=== PATIENT | female | born 1965 | race Caucasian/White ===

== ENCOUNTER 2016-05-23 00:24 | Emergency (ER) | payer OTHER ==
[~2016-05-23] VITALS: Ht 170.2 cm; Wt 102.0 kg
[~2016-05-23 00:24] MED LIST: IPRA0.02 NEB; LISI10TA3 PO; NOVO7030P2 SQ
[2016-05-23 00:27] VITALS: BP 159/74; PULSE 98; RESP 20; TEMP 98; O2SAT 92
[2016-05-23] MEDS ORDERED: SIMV40TA PO (00:58)
[2016-05-23] MEDS ORDERED: OXYC1TAB36 PO (00:58)
[2016-05-23] MEDS ORDERED: ALPR.5 PO (00:58)
== END 2016-05-23 02:15 | disposition left against medical advice (07) ==
LOC: NEPE 00:24
DX: Z53.21 Procedure and treatment not carried out due to patient leaving prior to being seen by health care provider (principal)
CPT/HCPCS: 99281

== ENCOUNTER 2016-12-09 14:12 | Emergency (ER) | payer OTHER ==
[~2016-12-09] VITALS: Ht 170.2 cm; Wt 68.0 kg
[~2016-12-09 14:12] MED LIST changes: +ALPR.5 PO; +OXYC1TAB36 PO; +SIMV40TA PO
[2016-12-09 14:25] VITALS: BP 139/73; PULSE 99; RESP 16; TEMP 98.2; O2SAT 98
--- NOTE | 2016-12-09 14:51 | PD ---
HPI Chief Complaint: Psychiatric Symptoms Time Seen by Provider: 14:51 Travel History International Travel<30 days: No Contact w/Intl Traveler<30days: No Traveled to known affect area: No History of Present Illness HPI 51-year-old female presents to the emergency Department under ex parte court order by her for psychiatric evaluation. According to her , the patient has a history of bipolar disorder and has been acting manic. The patient denies any history of bipolar disorder. She states she has a history of seizures and is on Depakote and a seizure medication as well as anti-anxiety medication. The patient is wearing a back brace. She is due to degenerative disc disease. She denies any fractures or acute back pain. Patient denies any medical complaints at this time. She is alert and oriented and answers all questions appropriately. Patient states that she has been acting completely normal denies all allegations. Patient has no medical complaints at this time. PFSH Past Medical History Arthritis: Yes Asthma: Yes Blood Disorders: No Anxiety: No Depression: No Heart Rhythm Problems: No Cancer: No Cardiac Catheterization: Yes Cardiomyopathy: Yes Cardiovascular Problems: Yes (MYOCARDIOMYOPATHY) High Cholesterol: Yes Chemotherapy: No Chest Pain: Yes Congestive Heart Failure: No COPD: No Cerebrovascular Accident: No Diabetes: Yes (INSULIN DEPENDENT) Diminished Hearing: No Endocrine: Yes Gastrointestinal Disorders: Yes Glaucoma: No Genitourinary: No Headaches: No Hypertension: No Immune Disorder: No Kidney Stones: Yes Musculoskeletal: Yes Neurologic: Yes Psychiatric: No Reproductive: Yes (OVARIAN CYSTS) Respiratory: Yes (ASTHMA) Immunizations Current: Yes Migraines: No Myocardial Infarction: No Radiation Therapy: No Seizures: Yes (1997) Sleep Apnea: No Thyroid Disease: Yes ?: Not Menopausal: Yes : 4 Para: 0 Miscarriage: 3 : 1 Ovarian Cysts: Yes Past Surgical History Abdominal Surgery: Yes (CHOLECYSTECTOMY) Cardiac Surgery: No Cholecystectomy: Yes Ear Surgery: No Endocrine Surgery: Yes (liver procedure) Eye Surgery: No Genitourinary Surgery: Yes Gynecologic Surgery: Yes (RBL OOPHRECTOMY, HYSTERECTOMY) Hysterectomy: Yes Neurologic Surgery: No Oral Surgery: No Pacemaker: No Thoracic Surgery: No Other Surgery: Yes ( OVARIAN SURGERY) Social History Alcohol Use: No Tobacco Use: Yes Substance Use: No Allergies-Medications (Allergen,Severity, Reaction): Coded Allergies: Clindamycin (Verified Allergy, Severe, 05/23/16) Latex (Verified Allergy, Severe, RASH, 05/23/16) Codeine (Verified Allergy, Intermediate, rash, 05/23/16) Reported Meds & Prescriptions Reported Meds & Active Scripts Active Ipratropium Neb (Ipratropium [place]) 0.5 Mg/2.5 Ml Amp 0.5 Mg NEB Q6HR NEB Reported Xanax (Alprazolam) 0.5 Mg Tab 0.5 Mg PO BID PRN Oxycodone-Acetaminophen 10-325 mg Tab 1 Tab PO Q6H PRN Simvastatin 40 Mg Tab 40 Mg PO HS Lisinopril 10 Mg Tab 10 Mg PO DAILY Novolin 70-30 Inj (Insulin Human Isoph/Insulin Regular) 1,000 Unit/10 Ml Vial 1 Units SQ Review of Systems Except as stated in HPI: all other systems reviewed are Neg Physical Exam Narrative GENERAL: Well-nourished, well-developed female patient, ambulatory. Afebrile. SKIN: Focused skin assessment warm/dry. HEAD: Normocephalic. Atraumatic. EYES: No scleral icterus. No injection or drainage. NECK: Supple, trachea midline. No JVD or lymphadenopathy. CARDIOVASCULAR: Regular rate and rhythm without murmurs, gallops, or rubs. RESPIRATORY: Breath sounds equal bilaterally. No accessory muscle use. Lungs sounds are clear to auscultation GASTROINTESTINAL: Abdomen soft, non-tender, nondistended. MUSCULOSKELETAL: No cyanosis, or edema. BACK: Nontender without obvious deformity. No CVA tenderness. Data Data Last Documented VS Vital Signs Date Time Temp Pulse Resp B/P Pulse Ox O2 Delivery O2 Flow Rate FiO2 12/09/16 14:25 98.2 99 16 139/73 98 Orders Complete Blood Count With Diff (12/09/16 14:38) Psych Screen (12/09/16 14:38) Drug Screen, Random Urine (12/09/16 14:38) Valproic Acid (Depakene) (12/09/16 14:50) Alcohol (Ethanol) (12/09/16 15:10) Comprehensive Metabolic Panel (12/09/16 15:10) Labs Laboratory Tests Test 12/09/16 12/09/16 15:10 15:17 White Blood Count 5.7 TH/MM3 Red Blood Count 4.98 MIL/MM3 Hemoglobin 15.2 GM/DL Hematocrit 45.3 % Mean Corpuscular Volume 91.0 FL Mean Corpuscular Hemoglobin 30.6 PG Mean Corpuscular Hemoglobin 33.6 % Concent Red Cell Distribution Width 14.9 % Platelet Count 215 TH/MM3 Mean Platelet Volume 9.0 FL Neutrophils (%) (Auto) 54.9 % Lymphocytes (%) (Auto) 34.3 % Monocytes (%) (Auto) 8.8 % Eosinophils (%) (Auto) 1.2 % Basophils (%) (Auto) 0.8 % Neutrophils # (Auto) 3.2 TH/MM3 Lymphocytes # (Auto) 2.0 TH/MM3 Monocytes # (Auto) 0.5 TH/MM3 Eosinophils # (Auto) 0.1 TH/MM3 Basophils # (Auto) 0.0 TH/MM3 CBC Comment DIFF FINAL Differential Comment Sodium Level 137 MEQ/L Potassium Level 4.5 MEQ/L Chloride Level 102 MEQ/L Carbon Dioxide Level 18.5 MEQ/L Anion Gap 17 MEQ/L Blood Urea Nitrogen 26 MG/DL Creatinine 1.02 MG/DL Estimat Glomerular Filtration 57 ML/MIN Rate Random Glucose 327 MG/DL Calcium Level 9.4 MG/DL Total Bilirubin 0.5 MG/DL Aspartate Amino Transf 16 U/L (AST/SGOT) Alanine Aminotransferase 22 U/L (ALT/SGPT) Alkaline Phosphatase 93 U/L Total Protein 7.2 GM/DL Albumin 3.3 GM/DL Valproic Acid (Depakene) Level 29 MCG/ML Ethyl Alcohol Level LESS THAN 3 MG/DL Urine Opiates Screen NEG Urine Barbiturates Screen NEG Urine Amphetamines Screen NEG Urine Benzodiazepines Screen NEG Urine Cocaine Screen NEG Urine Cannabinoids Screen NEG MDM Medical Decision Making Medical Screen Exam Complete: Yes Emergency Medical Condition: Yes Medical Record Reviewed: Yes Differential Diagnosis bipolar disorder vs. psychosis vs. electrolyte abnormality Narrative Course 51-year-old female presents to the emergency Department under court order for psychiatric evaluation. Before labs were resulted, the patient eloped from the emergency department. Police were contacted. Diagnosis Primary Impression: At risk for elopement from healthcare setting Additional Impression: Bipolar disorder Qualified Code: F31.12 - Bipolar affective disorder, currently manic, moderate Disposition: 07 AGAINST MEDICAL ADVICE Sue Donald Dec 09, 2016 14:51
[2016-12-09 15:37] LABS: AUTOMATED NEUTROPHIL # 3.2 TH/MM3 (1.8-7.7); BASOPHIL % 0.8 % (0.0-2.0); EOSINOPHIL # 0.1 TH/MM3 (0-0.4); EOSINOPHIL % 1.2 % (0.0-4.0); HEMATOCRIT 45.3 % (35.0-46.0); HEMO FLAGS DIFF FINAL; LYMPH % 34.3 % (9.0-44.0); MEAN CORPUSCULAR HEMOGLOBIN 30.6 PG (27.0-34.0); MEAN CORPUSCULAR HGB CONC 33.6 % (32.0-36.0); MONO % 8.8 % (0.0-8.0); NEUT % 54.9 % (16.0-70.0); PLATELET COUNT 215 TH/MM3 (150-450); RED BLOOD COUNT 4.98 MIL/MM3 (4.00-5.30); RED CELL DISTRIBUTION WIDTH 14.9 % (11.6-17.2); WHITE BLOOD COUNT 5.7 TH/MM3 (4.0-11.0)
[2016-12-09 15:47] LABS: AMPHETAMINE, URINE NEG (NEG); BARBITURATES, URINE NEG (NEG); COCAINE, URINE NEG (NEG)
[2016-12-09 16:47] LABS: ALKALINE PHOSPHATASE 93 U/L (45-117); TOTAL BILIRUBIN ADULT 0.5 MG/DL (0.2-1.0)
[2016-12-09 16:49] LABS: ALT (GPT) 22 U/L (10-53); ANION GAP 17 MEQ/L (5-15); AST (GOT) 16 U/L (15-37); BICARBONATE 18.5 MEQ/L (21.0-32.0); BLOOD UREA NITROGEN 26 MG/DL (7-18); CHLORIDE 102 MEQ/L (98-107); GLOMERULAR FILTRATION RATE 57 ML/MIN (>89); POTASSIUM 4.5 MEQ/L (3.5-5.1); SODIUM (NA) 137 MEQ/L (136-145)
== END 2016-12-09 17:46 | disposition left against medical advice (07) ==
LOC: NEPC 14:12
DX: F31.12 Bipolar disorder, current episode manic without psychotic features, moderate (principal)
CPT/HCPCS: 80053; 80164; 80307; 85025; 99283

== ENCOUNTER 2016-12-09 17:53 | Inpatient (IN) | payer OTHER, MEDICARE ==
[~2016-12-09] VITALS: Ht 170.2 cm; Wt 75.6 kg
[2016-12-09] MEDS ORDERED: SODIUM CHLOR 0.9% 1000 ML INJ 1,000 ML IV ONE ×2 (18:30)
[2016-12-09 18:41] VITALS: BP 132/75; PULSE 76; RESP 20; TEMP 98.1; O2SAT 99
--- NOTE | 2016-12-09 19:12 | PD ---
HPI Chief Complaint: Psychiatric Symptoms Time Seen by Provider: 19:11 Travel History International Travel<30 days: No Contact w/Intl Traveler<30days: No Traveled to known affect area: No History of Present Illness HPI 51-year-old female seen earlier today under court order for psychiatric evaluation. She had eloped from the emergency department. She is now back after police found her and brought her back. Patient was placed under expect a court order by her for psychiatric illness. Patient has history of hyperglycemia, hypertension, DDD, anxiety. Patient has no medical complaints at this time. PFSH Past Medical History Arthritis: Yes Asthma: Yes Blood Disorders: No Anxiety: No Depression: No Heart Rhythm Problems: No Cancer: No Cardiac Catheterization: Yes Cardiomyopathy: Yes Cardiovascular Problems: Yes (MYOCARDIOMYOPATHY) High Cholesterol: Yes Chemotherapy: No Chest Pain: Yes Congestive Heart Failure: No COPD: No Cerebrovascular Accident: No Diabetes: Yes (INSULIN DEPENDENT) Patient Takes Glucophage: No Diminished Hearing: No Endocrine: Yes Gastrointestinal Disorders: Yes Glaucoma: No Genitourinary: No Headaches: No Hypertension: No Immune Disorder: No Implanted Vascular Access Dvce: No Kidney Stones: Yes Musculoskeletal: Yes Neurologic: Yes Psychiatric: No Reproductive: Yes (OVARIAN CYSTS) Respiratory: Yes (ASTHMA) Immunizations Current: Yes Migraines: No Myocardial Infarction: No Radiation Therapy: No Seizures: Yes (1997) Sleep Apnea: No Thyroid Disease: Yes ?: Not Menopausal: Yes : 4 Para: 0 Miscarriage: 3 : 1 Ovarian Cysts: Yes Past Surgical History Abdominal Surgery: Yes (CHOLECYSTECTOMY) Cardiac Surgery: No Cholecystectomy: Yes Ear Surgery: No Endocrine Surgery: Yes (liver procedure) Eye Surgery: No Genitourinary Surgery: Yes Gynecologic Surgery: Yes (RBL OOPHRECTOMY, HYSTERECTOMY) Hysterectomy: Yes Neurologic Surgery: No Oral Surgery: No Pacemaker: No Thoracic Surgery: No Other Surgery: Yes ( OVARIAN SURGERY) Social History Alcohol Use: No Tobacco Use: Yes Substance Use: No Allergies-Medications (Allergen,Severity, Reaction): Coded Allergies: Clindamycin (Verified Allergy, Severe, 05/23/16) Latex (Verified Allergy, Severe, RASH, 05/23/16) Codeine (Verified Allergy, Intermediate, rash, 05/23/16) Reported Meds & Prescriptions Reported Meds & Active Scripts Active Ipratropium Neb (Ipratropium [place]) 0.5 Mg/2.5 Ml Amp 0.5 Mg NEB Q6HR NEB Reported Xanax (Alprazolam) 0.5 Mg Tab 0.5 Mg PO BID PRN Oxycodone-Acetaminophen 10-325 mg Tab 1 Tab PO Q6H PRN Simvastatin 40 Mg Tab 40 Mg PO HS Lisinopril 10 Mg Tab 10 Mg PO DAILY Novolin 70-30 Inj (Insulin Human Isoph/Insulin Regular) 1,000 Unit/10 Ml Vial 1 Units SQ Review of Systems Except as stated in HPI: all other systems reviewed are Neg Physical Exam Narrative GENERAL: Well-nourished, well-developed female patient, afebrile. SKIN: Focused skin assessment warm/dry. HEAD: Normocephalic. Atraumatic. EYES: No scleral icterus. No injection or drainage. NECK: Supple, trachea midline. No JVD or lymphadenopathy. CARDIOVASCULAR: Regular rate and rhythm without murmurs, gallops, or rubs. RESPIRATORY: Breath sounds equal bilaterally. No accessory muscle use. GASTROINTESTINAL: Abdomen soft, non-tender, nondistended. MUSCULOSKELETAL: No cyanosis, or edema. BACK: Nontender without obvious deformity. No CVA tenderness. Data Data Last Documented VS Vital Signs Date Time Temp Pulse Resp B/P Pulse Ox O2 Delivery O2 Flow Rate FiO2 12/09/16 21:33 75 18 115/60 98 Room Air 12/09/16 18:41 98.1 Orders Blood Gas Venous (Vbg) (12/09/16 18:28) Sodium Chlor 0.9% 1000 Ml Inj (Ns 1000 M (12/09/16 18:30) Sodium Chlor 0.9% 1000 Ml Inj (Ns 1000 M (12/09/16 18:30) Basic Metabolic Panel (Bmp) (12/09/16 19:45) Labs Laboratory Tests Test 12/09/16 12/09/16 19:20 21:30 Blood Gas Patient Temperature 98.6 Venous Blood pH 7.33 Venous Blood Partial Pressure 40 mmHg CO2 Venous Blood Partial Pressure 46 mmHg O2 Venous Blood HCO3 21 mmol/L Venous Blood Oxygen Saturation 76 % Venous Blood Oxygen Content 14.0 Vol % Venous Blood Base Excess -4.2 mmol/L Blood Gas Inspired Oxygen 21 % Sodium Level 141 MEQ/L Potassium Level 3.8 MEQ/L Chloride Level 109 MEQ/L Carbon Dioxide Level 21.1 MEQ/L Anion Gap 11 MEQ/L Blood Urea Nitrogen 22 MG/DL Creatinine 0.67 MG/DL Estimat Glomerular Filtration 92 ML/MIN Rate Random Glucose 206 MG/DL Calcium Level 8.3 MG/DL [facility] Medical Decision Making Medical Screen Exam Complete: Yes Emergency Medical Condition: Yes Medical Record Reviewed: Yes Differential Diagnosis Acute psychosis versus bipolar disorder versus electrolyte abnormality Narrative Course 51-year-old female is brought to the emergency Department under court order for psychiatric evaluation. Patient was here and eloped. She is brought back. I reviewed labs from previous visit. CBC shows no acute abnormality. CMP shows carbon dioxide 18.5, anion gap of 17, BUN 26, creatinine 1.02, glucose 327. Urine drug screen is negative. Depakote level is 29. Alcohol level is less than 3. I did a VBG which shows pH is 7.33, CO2 40. Patient is given 2 L IV fluid. She'll be admitted for acute psychosis with delusions, diabetes. [facility] is paged for admission. I talked to Dr. Murdock who recommends recheck of BMP after IVF. This is ordered. Repeat BMP shows no acute abnormality. Patient is medical history for psychiatric screening and disposition. Mental health screening discussed with the patient. Psychiatric screen ordered. Diagnosis Primary Impression: Acute psychosis Additional Impressions: Bipolar disorder Qualified Code: F31.12 - Bipolar affective disorder, currently manic, moderate Diabetes mellitus Qualified Code: E11.8 - Type 2 diabetes mellitus with complication, unspecified choker setter insulin use status Additional Instructions: Patient is medically cleared for psychiatric screening and disposition. Condition: Stable Odilon,Sue KANE Dec 09, 2016 19:11
[2016-12-09 21:33] VITALS: BP 115/60; PULSE 75; RESP 18; O2SAT 98
[2016-12-09 22:33] LABS: BICARBONATE 21.1 MEQ/L (21.0-32.0); POTASSIUM 3.8 MEQ/L (3.5-5.1)
[2016-12-10] MEDS ORDERED: INSULIN HUMAN REGULAR 1,000 UNITS/10 ML VIAL SQ ONE (06:15)
[2016-12-10 06:33] VITALS: BP 141/74; PULSE 77; RESP 18; O2SAT 95
[2016-12-10 10:42] VITALS: BP 135/71; PULSE 82; RESP 18
[2016-12-10] MEDS ORDERED: OLANZapine ODT 10 MG TAB PO ONE (12:45)
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
[2016-12-10] MEDS ORDERED: ALUMINUM/MAGNESIUM/SIMETH 30 ML CUP PO PRN (14:00)
[2016-12-10] MEDS ORDERED: ACETAMINOPHEN 325 MG TAB PO PRN (14:00)
[2016-12-10] MEDS ORDERED: MAGNESIUM HYDROXIDE SUSP 30 ML CUP PO PRN (14:00)
[2016-12-10] MEDS: NICOTINE 21 MG/24 HR PATCH T-DERMAL SCH (15:45)
[2016-12-10] MEDS ORDERED: GLUCAGON 1 MG/ML VIAL OTHER PRN (16:30)
[2016-12-10] MEDS ORDERED: DEXTROSE 50% IN WATER 50 ML VIAL(D50) IV PRN (16:30)
--- NOTE | 2016-12-10 16:33 | PD.CONS ---
[facility] Request[facility] By Psychiatric team Reason for Consult Consignee management of diabetes mellitus Primary Care Physician Tere Pak DO Diagnoses: History of Present Illness Written by Paola Hewitt, acting as scribe for Dr. De Anda on 12/10/16 at 16:24. This a 51-year-old female patient whose past medical history includes chronic back pain degenerative disc disease, hypertension, diabetes mellitus insulin- dependent and schizoaffective disorder with bipolar. Patient appears disheveled in appearance with matted hair and aggressive behavior. Patient unable to stay still during evaluation. Patient currently in inpatient psychiatric center. We have been consulted for assistance with medical management regarding diabetes mellitus. Patient asking for her psychiatric medications to be adjusted. She reports the, "Depakote is not working." Patient reports at home her diabetes is well-controlled and she reports she checks her blood sugar often. Patient also reports she takes blood pressure medication but is unsure the name. Patient focused on getting up brush for her hair and minimally able to focus on evaluation which is limiting available information. Patient appears a poor historian and her current psychiatric state. Patient denies chest pain shortness of breath nausea vomiting diarrhea constipation fevers or chills. Review of Systems ROS Limitations: Psychotic, Poor Historian Except as stated in HPI: all other systems reviewed are Neg Past Family Social History Allergies: Coded Allergies: Clindamycin (Verified Allergy, Severe, 05/23/16) Latex (Verified Allergy, Severe, RASH, 05/23/16) Codeine (Verified Allergy, Intermediate, rash, 05/23/16) Past Medical History chronic back pain degenerative disc disease, hypertension, diabetes mellitus insulin-dependent and schizoaffective disorder with bipolar Past Surgical History Cervical spine surgery with hardware placement Reported Medications Ipratropium Neb (Ipratropium [place]) 0.5 Mg/2.5 Ml Amp 0.5 Mg NEB Q6HR NEB Xanax (Alprazolam) 0.5 Mg Tab 0.5 Mg PO BID PRN Oxycodone-Acetaminophen 10-325 mg Tab 1 Tab PO Q6H PRN Simvastatin 40 Mg Tab 40 Mg PO HS Lisinopril 10 Mg Tab 10 Mg PO DAILY Novolin 70-30 Inj (Insulin Human Isoph/Insulin Regular) 1,000 Unit/10 Ml Vial 1 Units SQ Active Ordered Medications Current Medications Medications (Trade) Dose Ordered Sig/Bill Route Start Time Stop Time Status Last Admin (Tylenol) 650 mg Q4H PRN PO 12/10/16 14:00 (Milk Of Magnesia Liq) 30 ml DAILY PRN PO 12/10/16 14:00 (Mag-Al Plus Susp Liq) 30 ml Q6H PRN PO 12/10/16 14:00 (Habitrol 21 Mg Patch.24 Hr) 1 patch DAILY T-DERMAL 12/10/16 14:00 12/10/16 15:45 Miscellaneous Information 1 DAILY T-DERMAL 12/11/16 09:00 (Prinivil) 10 mg DAILY PO 12/11/16 09:00 (Pravachol) 80 mg HS PO 12/10/16 21:00 Family History Patient reports she is adopted and does not know family medical history Social History Denies EtOH use or illicit drug use Reports smokes 1.5 packs per day Physical Exam Vital Signs Vital Signs Date Time Temp Pulse Resp B/P Pulse Ox O2 Delivery O2 Flow Rate FiO2 12/10/16 10:59 77 18 12/10/16 10:42 82 18 135/71 Room Air 12/10/16 06:33 77 18 141/74 95 12/09/16 21:33 75 18 115/60 98 Room Air 12/09/16 18:41 98.1 76 20 132/75 99 Physical Exam GENERAL: This is a 51-year-old female patient who appears older than stated age. Disheveled with matted hair and aggressive behavior unable to stay still throughout evaluation SKIN: Torn earlobe left ear, small healing hematoma left lower lid HEAD:Normocephalic. No temporal or scalp tenderness. EYES: Extraocular motions intact. No scleral icterus. No injection or drainage. CARDIOVASCULAR: Regular rate and rhythm RESPIRATORY: Clear to auscultation. Breath sounds equal bilaterally. No wheezes , rales, or rhonchi. GASTROINTESTINAL: Abdomen soft, non-tender, nondistended. No guarding. MUSCULOSKELETAL: Extremities without clubbing, cyanosis, or edema. No joint tenderness, effusion, or edema noted. No calf tenderness. Negative Homans sign bilaterally. NEUROLOGICAL: Awake and alert. No focal deficits appreciated. Motor and sensory grossly within normal limits. Five out of 5 muscle strength in all muscle groups. Normal speech. Laboratory Laboratory Tests Test 12/09/16 12/09/16 19:20 21:30 Blood Gas Patient Temperature 98.6 Venous Blood pH 7.33 Venous Blood Partial Pressure 40 CO2 Venous Blood Partial Pressure 46 O2 Venous Blood HCO3 21 Venous Blood Oxygen Saturation 76 Venous Blood Oxygen Content 14.0 Venous Blood Base Excess -4.2 Blood Gas Inspired Oxygen 21 Sodium Level 141 Potassium Level 3.8 Chloride Level 109 Carbon Dioxide Level 21.1 Anion Gap 11 Blood Urea Nitrogen 22 Creatinine 0.67 Estimat Glomerular Filtration 92 Rate Random Glucose 206 Calcium Level 8.3 Result Diagram: 12/09/162129 Assessment and Plan Problem List: (1) Diabetes mellitus ICD Code: E11.9 Status: Chronic (2) HTN (hypertension) ICD Code: I10 Status: Chronic (3) Acute psychosis ICD Code: F23 Status: Acute Assessment and Plan This a 51-year-old female patient whose past medical history includes chronic back pain degenerative disc disease, hypertension, diabetes mellitus insulin- dependent and schizoaffective disorder with bipolar. Patient appears disheveled in appearance with matted hair and aggressive behavior. Patient unable to stay still during evaluation. Patient currently in inpatient psychiatric center. We have been consulted for assistance with medical management regarding diabetes mellitus. Psychiatric disorder management per psychiatry team Diabetes mellitus, Insulin-dependent- uncontrolled Unclear patient's home insulin dose or type Accu-Cheks before meals at bedtime with medium dose on a scale insulin coverage Diabetic diet Check HA1C in AM Degenerative disc disease with chronic back pain Fentanyl patch 50 mcg every 3 days Hyperlipidemia continue simvastatin Tobacco abuse patient counseled encouraged to abstain Nicotine patch ordered DVT prophylaxis patient is able to tolerate low risk Discussed with patient and nursing This note was transcribed by anisha Hewitt. I, Dr. Daksha De Anda personally performed the history, physical exam, and medical decision making; and confirmed the accuracy of the information in the transcribed note. Authenticated by Dr. Daksha De Anda on 12/10/16 at 16:29. Problem Qualifiers (1) Diabetes mellitus: Qualified Code: E11.8 - Type 2 diabetes mellitus with complication, unspecified usp insulin use status Paola Hewitt Dec 10, 2016 16:33 Daksha De Anda MD Dec 10, 2016 21:14
[2016-12-10 16:59] VITALS: BP 156/77; PULSE 89; RESP 18; TEMP 97.8; O2SAT 95
[2016-12-10] MEDS: INSULIN ASPART SUPPLEMENTAL SCALE SQ SCH ×2 (17:23→20:36)
[2016-12-10] MEDS: fentaNYL 50 MCG/HR PATCH T-DERMAL SCH (17:25)
[2016-12-10] MEDS: PRAVASTATIN SOD 80 MG TAB PO SCH (20:36)
[2016-12-10] MEDS ORDERED: INSULIN ASPART SUPPLEMENTAL SCALE SQ SCH (21:00)
[2016-12-11 06:00] VITALS: BP 141/75; PULSE 73; RESP 18; TEMP 97.3; O2SAT 97
[2016-12-11] MEDS: INSULIN ASPART SUPPLEMENTAL SCALE SQ SCH ×4 (06:21→20:47)
[2016-12-11] MEDS: NICOTINE 21 MG/24 HR PATCH T-DERMAL SCH (09:00)
[2016-12-11] MEDS: LISINOPRIL 10 MG TAB PO SCH ×2 (09:00→09:58)
[2016-12-11] MEDS: REMOVE OLD PATCH T-DERMAL SCH (09:00)
[2016-12-11] MEDS ORDERED: PNEUMOCOCCAL POLYVALENT INJ 25 MCG/0.5 ML SYR IM ONE (10:00)
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
[2016-12-11] MEDS: OLANZapine 2.5 MG TAB PO SCH (20:37)
[2016-12-11] MEDS: PRAVASTATIN SOD 80 MG TAB PO SCH (20:37)
[2016-12-11] MEDS ORDERED: INSULIN DETEMIR 100 UNITS/ML VIAL SQ SCH (21:00)
[2016-12-11 22:31] VITALS: BP 109/59; PULSE 77; RESP 18; TEMP 97.9; O2SAT 96
[2016-12-12] MEDS: INSULIN ASPART SUPPLEMENTAL SCALE SQ SCH ×4 (05:34→21:44)
[2016-12-12 05:59] VITALS: BP 132/73; PULSE 88; RESP 18; TEMP 97.9; O2SAT 98
[2016-12-12] MEDS: REMOVE OLD PATCH T-DERMAL SCH (09:00)
[2016-12-12] MEDS: LISINOPRIL 10 MG TAB PO SCH (09:00)
[2016-12-12] MEDS: OLANZapine 2.5 MG TAB PO SCH (09:00)
[2016-12-12] MEDS: NICOTINE 21 MG/24 HR PATCH T-DERMAL SCH (09:00)
[2016-12-12 11:47] LABS: ANION GAP 8 MEQ/L (5-15); BICARBONATE 26.4 MEQ/L (21.0-32.0); CHLORIDE 107 MEQ/L (98-107); GLOMERULAR FILTRATION RATE 89 ML/MIN (>89); POTASSIUM 4.2 MEQ/L (3.5-5.1); SODIUM (NA) 141 MEQ/L (136-145)
[2016-12-12 11:49] LABS: BLOOD UREA NITROGEN 20 MG/DL (7-18); HDL CHOLESTEROL 59.3 MG/DL (40.0-60.0); LDL CHOLESTEROL 68 MG/DL (0-99)
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
--- NOTE | 2016-12-12 12:40 | HHI.PR ---
Subjective Remarks Follow up: IDDM, DDD, hyperlipidemia. Patient evaluated outside in exercise area. Patient offers no specific medical complaints at this time. Patient reports she is being discharged today and repeatedly asking for prescription for anti-anxiety medication. Patient denies shortness of breath chest pain nausea vomiting diarrhea constipation fevers or chills Objective Vitals Vital Signs Date Time Temp Pulse Resp B/P Pulse Ox O2 Delivery O2 Flow Rate FiO2 12/12/16 05:59 97.9 88 18 132/73 98 12/11/16 22:31 97.9 77 18 109/59 96 Result Diagram: 12/12/16 0910 Objective Remarks GENERAL: This is a 51-year-old female patient who appears older than stated age. Preoccupied/fixed on discharge and prescription for anti-anxiety medications SKIN: Torn earlobe left ear, small healing scrap/hematoma left lower lid HEAD:Normocephalic. No temporal or scalp tenderness. EYES: Extraocular motions intact. No scleral icterus. No injection or drainage. CARDIOVASCULAR: Regular rate and rhythm RESPIRATORY: Clear to auscultation. Breath sounds equal bilaterally. No wheezes , rales, or rhonchi. GASTROINTESTINAL: Abdomen soft, non-tender, nondistended. No guarding. MUSCULOSKELETAL: Extremities without clubbing, cyanosis, or edema. No joint tenderness, effusion, or edema noted. No calf tenderness. Negative Homans sign bilaterally. NEUROLOGICAL: Awake and alert. No focal deficits appreciated. Motor and sensory grossly within normal limits. Five out of 5 muscle strength in all muscle groups. Normal speech. A/P Problem List: (1) Diabetes mellitus ICD Code: E11.9 Status: Chronic (2) HTN (hypertension) ICD Code: I10 Status: Chronic (3) Acute psychosis ICD Code: F23 Status: Acute Assessment and Plan This a 51-year-old female patient whose past medical history includes chronic back pain degenerative disc disease, hypertension, diabetes mellitus insulin- dependent and schizoaffective disorder with bipolar. Patient appears disheveled in appearance with matted hair and aggressive behavior. Patient unable to stay still during evaluation. Patient currently in inpatient psychiatric center. We have been consulted for assistance with medical management regarding diabetes mellitus. Psychiatric disorder management per psychiatry team Diabetes mellitus, Insulin-dependent- uncontrolled Unclear patient's home insulin dose or type Accu-Cheks before meals at bedtime with medium dose on a scale insulin coverage increase Levemir to 15 Units QHS Diabetic diet Check HA1C pending Degenerative disc disease with chronic back pain Fentanyl patch 50 mcg every 3 days Hyperlipidemia continue simvastatin Tobacco abuse patient counseled encouraged to abstain Nicotine patch ordered DVT prophylaxis patient is able to tolerate low risk Discussed with patient, nursing Dr. Ambriz Problem Qualifiers (1) Diabetes mellitus: Qualified Code: E11.8 - Type 2 diabetes mellitus with complication, unspecified watermaster insulin use status Paola Hewitt Dec 12, 2016 12:40
[2016-12-12] MEDS ORDERED: OLANZapine IM 10 MG VIAL IM PRN (13:30)
[2016-12-12] MEDS ORDERED: HALOPERIDOL LACTATE 5 MG/ML AMP IM PRN (14:00)
[2016-12-12] MEDS ORDERED: BENZTROPINE MESYLATE 1 MG TAB PO PRN (14:00)
[2016-12-12] MEDS ORDERED: LORazepam 2 MG/ML VIAL IM PRN (14:00)
[2016-12-12] MEDS ORDERED: HALOPERIDOL 5 MG TAB PO PRN (14:00)
[2016-12-12] MEDS ORDERED: BENZTROPINE MESYLATE 2 MG/2 ML VIAL IM PRN (14:00)
[2016-12-12] MEDS ORDERED: OLANZapine IM 10 MG VIAL IM STA (15:06)
[2016-12-12 18:16] VITALS: BP 139/80; PULSE 69; RESP 18; TEMP 97.9; O2SAT 99
[2016-12-12 18:22] LABS: HEMOGLOBIN A1a 1.3 %; HEMOGLOBIN A1b 0.8 %; HEMOGLOBIN Ao 77.8 %; HEMOGLOBIN F 1.8 %; HEMOGLOBIN LA1C 2.4 %; HEMOGLOBIN P3 4.9 %
[2016-12-12] MEDS ORDERED: OLANZapine 5 MG TAB PO SCH (21:00)
[2016-12-12] MEDS: INSULIN DETEMIR 100 UNITS/ML VIAL SQ SCH (21:00)
[2016-12-12] MEDS: PRAVASTATIN SOD 80 MG TAB PO SCH (21:43)
[2016-12-12] MEDS: DIVALPROEX DR 500 MG TABEC PO SCH (21:43)
[2016-12-13 06:03] VITALS: BP 137/72; PULSE 85; RESP 17; TEMP 97.7; O2SAT 96
[2016-12-13] MEDS: INSULIN ASPART SUPPLEMENTAL SCALE SQ SCH ×4 (07:00→20:47)
[2016-12-13] MEDS: REMOVE OLD PATCH T-DERMAL SCH (09:00)
[2016-12-13] MEDS: DIVALPROEX DR 500 MG TABEC PO SCH ×2 (09:24→21:32)
[2016-12-13] MEDS: LISINOPRIL 10 MG TAB PO SCH (09:24)
[2016-12-13] MEDS: NICOTINE 21 MG/24 HR PATCH T-DERMAL SCH (09:25)
[2016-12-13] MEDS: LORazepam 1 MG TAB PO PRN ×2 (09:25→18:50)
--- NOTE | 2016-12-13 11:55 | HHI.PYPN ---
Subjective Remarks Patient seen and examined with counselor and nurse. Chart reviewed. Case discussed in treatment team. Per nursing staff, patient remains labile, unpredictable and delusional. On my examination today, the patient is quite perseverative with respect to her thought process. Her insight into her mental illness is poor. She continues to minimize the circumstances of her presentation here. She does seem a little bit calmer today with adjustment in psychotropics. No evident side effects from medications. No physical complaints. Review of Systems ROS Limitations: Psychotic, Poor Historian Except as stated in HPI: all other systems reviewed are Neg Objective Alert: Yes [place]: Person Mood: Other (Calmer) Affect: Other (Irritable edge) Memory Intact: Comment (Not formally assessed) Hallucinations: Auditory (Still a little int stim) Delusions: Yes Delusion Type: Paranoid Suicidal: Ideation (No SI) Homicidal: Ideation (No HI) Insight/Judgment Poor Remarks No motor abnormalities noted. Grooming and hygiene fair. Speech wnl for rate, volume. Labs Labs reviewed. Vitals/IOs Vital Signs Date Time Temp Pulse Resp B/P Pulse Ox O2 Delivery O2 Flow Rate FiO2 12/13/16 06:03 97.7 85 17 137/72 96 12/10/16 10:42 Room Air Assessment & Plan Problem List: (1) Schizoaffective disorder ICD Code: F25.9 Assessment & Plan Titrate Zyprexa to 7.5 mg at bedtime for mood stabilization and for psychosis. Continue Depakote as ordered. Plan to check a Depakote level and ammonia level after the appropriate interval. Appreciate hospitalist input. Continue to monitor on the high acuity unit. Continue other medications and care as ordered. Justification for Cont. Inpt. Medication changes in process. Impairment in reality construction. High risk for decompensation in less restrictive environment. Discharge Planning Pending psychiatric stabilization Request HC Surrog/Guard Advoc?: Yes Problem Qualifiers (1) Schizoaffective disorder: Qualified Code: F25.0 - Schizoaffective disorder, bipolar type Jamil Mcintosh MD Dec 13, 2016 11:55
[2016-12-13] MEDS ORDERED: REMOVE OLD DURAGESIC (FENTANYL) PATCH T-DERMAL SCH (17:00)
[2016-12-13 18:10] VITALS: BP 126/77; PULSE 95; RESP 17; TEMP 98.5; O2SAT 98
[2016-12-13] MEDS: fentaNYL 50 MCG/HR PATCH T-DERMAL SCH (18:57)
[2016-12-13] MEDS: INSULIN DETEMIR 100 UNITS/ML VIAL SQ SCH (20:46)
[2016-12-13] MEDS ORDERED: OLANZapine 2.5 MG TAB PO SCH (21:00)
[2016-12-13] MEDS: PRAVASTATIN SOD 80 MG TAB PO SCH (21:32)
[2016-12-14 05:52] VITALS: BP 129/74; PULSE 89; RESP 18; TEMP 97.3; O2SAT 98
[2016-12-14] MEDS: INSULIN ASPART SUPPLEMENTAL SCALE SQ SCH ×4 (06:39→20:13)
[2016-12-14] MEDS: REMOVE OLD PATCH T-DERMAL SCH (09:00)
[2016-12-14] MEDS: DIVALPROEX DR 500 MG TABEC PO SCH ×2 (09:13→20:08)
[2016-12-14] MEDS: LISINOPRIL 10 MG TAB PO SCH (09:13)
[2016-12-14] MEDS: NICOTINE 21 MG/24 HR PATCH T-DERMAL SCH (09:15)
[2016-12-14] MEDS: LORazepam 1 MG TAB PO PRN ×2 (09:15→20:08)
--- NOTE | 2016-12-14 09:44 | HHI.PYPN ---
Subjective Remarks Patient seen and examined with counselor and nurse. Chart reviewed. Case discussed with nursing staff. Patient remains internally stimulated per nursing staff. On my examination today, patient denies AVH but remains somewhat internally preoccupied. Her thought process is tangential at times. She is resistant to accepting medications other than Depakote but does agree to accept the Zyprexa on an ongoing basis after further psychoeducation regarding its role in her regimen. She is calmer with medications, although I do see it documented in nursing notes that she was angry yesterday afternoon. Denies side effects from medications. No physical complaints. Review of Systems ROS Limitations: Psychotic, Poor Historian Except as stated in HPI: all other systems reviewed are Neg Objective Alert: Yes [place]: Person, Place (at least) Mood: Other (again somewhat calmer) Affect: Other (remains a little bit irritable, but this too is lessening) Memory Intact: Comment (Not formally assessed) Hallucinations: Auditory (denies AVH but appears somewhat internally preoccupied) Delusions: Yes Delusion Type: Paranoid (perhaps lessening) Suicidal: Ideation (No SI) Homicidal: Ideation (No HI) Insight/Judgment Poor Remarks No abnormal motor movements noted. Thought process at times tangential. Speech within normal limits for rate, tone and volume. Grooming and hygiene fair. Labs Labs reviewed. Vitals/IOs Vital Signs Date Time Temp Pulse Resp B/P Pulse Ox O2 Delivery O2 Flow Rate FiO2 12/14/16 05:52 97.3 89 18 129/74 98 12/10/16 10:42 Room Air Assessment & Plan Problem List: (1) Schizoaffective disorder ICD Code: F25.9 Assessment & Plan Titrate Zyprexa to 10 mg at bedtime for mood stabilization and psychosis. Continue Depakote as ordered with plans to draw a Depakote and ammonia level in the morning. Continue to monitor on the inpatient unit. Patient is presently willing to remain in the hospital voluntarily for further treatment; patient may sign voluntary at this time. Justification for Cont. Inpt. Medication changes in process. Need to follow-up Depakote level and possibly adjust the dose. Impairment in reality construction, perhaps improving. Remains at high risk for decompensation in a less restrictive environment. Discharge Planning I anticipate that the patient may be adequately stabilized for safety discharge by Monday of this week. Request HC Surrog/Guard Advoc?: Yes Problem Qualifiers (1) Schizoaffective disorder: Qualified Code: F25.0 - Schizoaffective disorder, bipolar type Jamil Mcintosh MD Dec 14, 2016 09:44
--- NOTE | 2016-12-14 10:36 | HHI.PR ---
Subjective Remarks Follow-up visit type 1 diabetes, noncompliant. Patient seen and examined today. Reports she is doing well. Discuss with patient results of hemoglobin A1c. Discuss compliance. Patient states that she uses Lantus 15 units outside and her last hemoglobin A1c that was done by her PCP was 7.9. Spoke with patient that she needs to comply with the medication especially she reports that she has type 1 diabetes which was diagnosed and she was 8 years old. Denies pain and discomfort. Denies SOB/ dyspnea. Denies chest pain, palpitations, headaches, dizziness. Denies fevers, chills, n/v/d. Denies dysuria. Objective Vitals Vital Signs Date Time Temp Pulse Resp B/P Pulse Ox O2 Delivery O2 Flow Rate FiO2 12/14/16 05:52 97.3 89 18 129/74 98 12/13/16 18:10 98.5 95 17 126/77 98 Result Diagram: 12/12/16 0910 Objective Remarks GENERAL: This is a well-nourished, well-developed patient, in no apparent distress. SKIN: Warm and dry. HEENT: Normocephalic. Pupils equal round and reactive. Nose without bleeding. Airway patent. NECK: Trachea midline. CARDIOVASCULAR: Regular rate and rhythm without murmurs, gallops, or rubs. RESPIRATORY: Clear to auscultation. Breath sounds equal bilaterally. No wheezes , rales, or rhonchi. GASTROINTESTINAL: Abdomen soft, non-tender, nondistended. Bowel Sounds normoactive x4. MUSCULOSKELETAL: Extremities without clubbing, cyanosis, or edema. NEUROLOGICAL: Awake and alert. Oriented to place, person. No focal neuro deficit. Moves all extremities. Normal speech. A/P Problem List: (1) Diabetes mellitus ICD Code: E11.9 Status: Chronic (2) HTN (hypertension) ICD Code: I10 Status: Chronic (3) Acute psychosis ICD Code: F23 Status: Acute Assessment and Plan This a 51-year-old female patient whose past medical history includes chronic back pain degenerative disc disease, hypertension, diabetes mellitus insulin- dependent and schizoaffective disorder with bipolar. Patient appears disheveled in appearance with matted hair and aggressive behavior. Patient unable to stay still during evaluation. Patient currently in inpatient psychiatric center. We have been consulted for assistance with medical management regarding diabetes mellitus. Psychiatric disorder management per psychiatry team Type 1 Diabetes mellitus, Insulin-dependent- uncontrolled Verified dose of Insulin from [facility] - patient is taking Lantus 30 units subcutaneous once a day. As per patient, she is taking at 15 units twice a day. Last refill of medication was September 2016. Accu-Cheks before meals at bedtime with medium dose on a scale insulin coverage Change Levemir to 15 Units BID Diabetic diet Check HA1C 10.9 - Discuss with patient compliance of medication. Discuss similarity of Levemir and Lantus. Patient states that she was on insulin sliding scale before but now has been off of it and just being on Lantus. She is being followed by her primary care doctor with insulin adjustments. Degenerative disc disease with chronic back pain Fentanyl patch 50 mcg every 3 days Hyperlipidemia continue simvastatin Tobacco abuse patient counseled encouraged to abstain Nicotine patch ordered DVT prophylaxis patient is able to tolerate low risk Discussed with patient, nursing Dr. Canas Problem Qualifiers (1) Diabetes mellitus: Qualified Code: E11.8 - Type 2 diabetes mellitus with complication, unspecified residential insulin use status Hiro Ernst Dec 14, 2016 10:36
[2016-12-14 18:20] VITALS: BP 115/68; PULSE 84; RESP 18; TEMP 97.4; O2SAT 99
[2016-12-14] MEDS: OLANZapine 10 MG TAB PO SCH (20:08)
[2016-12-14] MEDS: PRAVASTATIN SOD 80 MG TAB PO SCH (20:08)
[2016-12-14] MEDS: INSULIN DETEMIR 100 UNITS/ML VIAL SQ SCH (20:15)
[2016-12-15 06:03] VITALS: BP 103/73; PULSE 94; RESP 17; TEMP 97.7; O2SAT 99
[2016-12-15] MEDS: INSULIN ASPART SUPPLEMENTAL SCALE SQ SCH ×4 (06:09→21:00)
[2016-12-15] MEDS: REMOVE OLD PATCH T-DERMAL SCH (08:55)
[2016-12-15] MEDS: DIVALPROEX DR 500 MG TABEC PO SCH ×2 (08:55→20:03)
[2016-12-15] MEDS: LISINOPRIL 10 MG TAB PO SCH (08:55)
[2016-12-15] MEDS: NICOTINE 21 MG/24 HR PATCH T-DERMAL SCH (08:55)
[2016-12-15] MEDS: INSULIN DETEMIR 100 UNITS/ML VIAL SQ SCH ×2 (09:00→21:00)
--- NOTE | 2016-12-15 11:00 | HHI.PYPN ---
Subjective Remarks Patient seen and examined with counselor and nurse. Chart reviewed. Case d/w RN. On my exam, patient seems improved. Mood reportedly more stable. Affect appropriate and not expansive or labile. No evidence of int stim. Denies SI or HI. TP becoming more linear. She has signed voluntary. She is pleased with current med regimen. Denies side effects from meds. No physical complaints besides chronic back pain. Review of Systems Except as stated in HPI: all other systems reviewed are Neg Objective Alert: Yes [place]: Person, Place Mood: Calm Affect: Appropriate Memory Intact: Comment (Not formally assessed) Hallucinations: Other (No hallucinations) Delusions: No Delusion Type: Other (No delusions) Suicidal: Ideation (Denies SI) Homicidal: Ideation (Denies HI) Insight/Judgment Poor Remarks No motor abnormalities noted. TP fairly linear. Grooming and hygiene good. Labs Labs reviewed. VPA level slightly low at 49, but this may slightly under- represent actual level given that she has only been on VPA 3 days. Ammonia level slightly elevated without evidence of encephalopathy. Vitals/IOs Vital Signs Date Time Temp Pulse Resp B/P Pulse Ox O2 Delivery O2 Flow Rate FiO2 12/15/16 06:03 97.7 94 17 103/73 99 Assessment & Plan Problem List: (1) Schizoaffective disorder ICD Code: F25.9 Assessment & Plan Continue Depakote and Zyprexa as ordered. Recheck VPA and ammonia level in the morning. If VPA level still subtherapeutic, may offer to titrate VPA, although patient does seem to be improving on current dose and so I do not think this is absolutely necessary, especially since she also has Zyprexa on board. If ammonia level is still elevated, may consider prophylactic use of Carnitor/ lactulose. Continue to monitor on inpatient unit. Continue other medications and care as ordered. Justification for Cont. Inpt. Recheck lab values. Discharge Planning Possible d/c tomorrow. Request HC Surrog/Guard Advoc?: Yes Problem Qualifiers (1) Schizoaffective disorder: Qualified Code: F25.0 - Schizoaffective disorder, bipolar type Jamil Mcintosh MD Dec 15, 2016 10:59
[2016-12-15] MEDS: LORazepam 1 MG TAB PO PRN ×2 (11:47→20:03)
[2016-12-15 16:03] VITALS: BP 87/52; PULSE 81; RESP 17; TEMP 98; O2SAT 98
[2016-12-15] MEDS: PRAVASTATIN SOD 80 MG TAB PO SCH (20:03)
[2016-12-15] MEDS: OLANZapine 10 MG TAB PO SCH (20:04)
[2016-12-16] MEDS: INSULIN ASPART SUPPLEMENTAL SCALE SQ SCH ×2 (06:03→11:25)
[2016-12-16] MEDS: REMOVE OLD PATCH T-DERMAL SCH (06:07)
[2016-12-16 06:13] VITALS: BP 139/76; PULSE 90; RESP 16; TEMP 97.2; O2SAT 99
[2016-12-16] MEDS: NICOTINE 21 MG/24 HR PATCH T-DERMAL SCH (08:52)
[2016-12-16] MEDS: DIVALPROEX DR 500 MG TABEC PO SCH (08:53)
[2016-12-16] MEDS: LISINOPRIL 10 MG TAB PO SCH (08:53)
[2016-12-16] MEDS ORDERED: INSULIN DETEMIR 100 UNITS/ML VIAL SQ SCH (09:00)
[2016-12-16] MEDS ORDERED: OLAN10TA PO (12:01)
[2016-12-16] MEDS ORDERED: LEVEMIR SQ (12:01)
[2016-12-16] MEDS ORDERED: DIVA500T PO (12:01)
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
[2016-12-16] MEDS: LORazepam 1 MG TAB PO PRN (13:49)
== END 2016-12-16 15:35 | disposition home or self-care (01) | DRG 885 ==
LOC: NEPC 17:53 → NEDA 12-10 13:50 → H270 12-10 15:26
PROVIDERS: ADMIT Psychiatry & Neurology Psychiatry; ATTEND Psychiatry & Neurology Psychiatry
DX: F25.0 Schizoaffective disorder, bipolar type (principal); I42.9 Cardiomyopathy, unspecified; F23 Brief psychotic disorder; E10.65 Type 1 diabetes mellitus with hyperglycemia; E78.5 Hyperlipidemia, unspecified; F22 Delusional disorders; G89.29 Other chronic pain; M54.9 Dorsalgia, unspecified; I10 Essential (primary) hypertension; J45.909 Unspecified asthma, uncomplicated; Z79.4 Long term (current) use of insulin; F17.210 Nicotine dependence, cigarettes, uncomplicated; Z87.442 Personal history of urinary calculi; Z91.14 Patient's other noncompliance with medication regimen; Z91.19 Patient's noncompliance with other medical treatment and regimen
CPT/HCPCS: 80048; 80053; 80061; 80164; 80307; 82140; 82948; 83036; 85025; 96372; 99283; J1815; J7030

== ENCOUNTER 2017-01-07 18:11 | Emergency (ER) | payer OTHER ==
[~2017-01-07] VITALS: Ht 172.7 cm; Wt 75.6 kg
[~2017-01-07 18:11] MED LIST changes: -ALPR.5 PO; +DIVA500T PO; -IPRA0.02 NEB; +LEVEMIR SQ; -NOVO7030P2 SQ; +OLAN10TA PO
[2017-01-07 18:23] VITALS: BP 140/75; PULSE 97; RESP 16; TEMP 98; O2SAT 96
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
[2017-01-07 19:28] LABS: AUTOMATED NEUTROPHIL # 4.7 TH/MM3 (1.8-7.7); BASOPHIL # 0.1 TH/MM3 (0-0.2); BASOPHIL % 0.9 % (0.0-2.0); EOSINOPHIL % 0.5 % (0.0-4.0); HEMATOCRIT 46.4 % (35.0-46.0); HEMO FLAGS DIFF FINAL; LYMPH % 23.3 % (9.0-44.0); LYMPHOCYTE # 1.6 TH/MM3 (1.0-4.8); MEAN CELL VOLUME 92.3 FL (80.0-100.0); MEAN CORPUSCULAR HEMOGLOBIN 30.5 PG (27.0-34.0); MONO % 7.1 % (0.0-8.0); NEUT % 68.2 % (16.0-70.0); PLATELET COUNT 227 TH/MM3 (150-450); RED BLOOD COUNT 5.02 MIL/MM3 (4.00-5.30); RED CELL DISTRIBUTION WIDTH 15.3 % (11.6-17.2); WHITE BLOOD COUNT 6.9 TH/MM3 (4.0-11.0)
[2017-01-07 19:38] LABS: ANION GAP 10 MEQ/L (5-15); BICARBONATE 22.3 MEQ/L (21.0-32.0); BLOOD UREA NITROGEN 19 MG/DL (7-18); CHLORIDE 103 MEQ/L (98-107); GLOMERULAR FILTRATION RATE 59 ML/MIN (>89); SODIUM (NA) 135 MEQ/L (136-145)
[2017-01-07 19:54] LABS: ALCOHOL LESS THAN 3 MG/DL (0-5); POTASSIUM 4.8 MEQ/L (3.5-5.1)
[2017-01-07] MEDS ORDERED: SODIUM CHLOR 0.9% 1000 ML INJ 1,000 ML IV ONE (20:00)
[2017-01-07] MEDS ORDERED: KETOROLAC TROMETHAMINE 30 MG/ML (IVP) VIAL IV PUSH ONE (20:00)
[2017-01-07] MEDS ORDERED: INSULIN HUMAN REGULAR 1,000 UNITS/10 ML VIAL IV PUSH ONE (20:00)
[2017-01-07 22:32] VITALS: BP 179/77; PULSE 99; RESP 18; TEMP 97.5; O2SAT 96
[2017-01-08 03:01] VITALS: BP 132/72; PULSE 80; RESP 18; O2SAT 96
[2017-01-08 06:45] VITALS: BP 157/73; PULSE 86; RESP 18; O2SAT 96
[2017-01-08] MEDS ORDERED: INSULIN ASPART 1,000 UNITS/10 ML VIAL SQ ONE ×2 (12:26→14:15)
[2017-01-08] MEDS ORDERED: DIVALPROEX DR 500 MG TABEC PO ONE (14:15)
[2017-01-08] MEDS ORDERED: INSULIN HUMAN REGULAR 1,000 UNITS/10 ML VIAL SQ ONE (17:30)
[2017-01-08] MEDS ORDERED: NICOTINE 21 MG/24 HR PATCH T-DERMAL ONE (17:30)
[2017-01-08 17:53] VITALS: BP 94/55; PULSE 85; RESP 18; O2SAT 98
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
[2017-01-08 20:46] VITALS: BP 123/57; PULSE 71; RESP 18
[2017-01-09] MEDS ORDERED: DEXTROSE 50% IN WATER 50 ML VIAL(D50) IV PRN (03:45)
[2017-01-09] MEDS ORDERED: GLUCAGON 1 MG/ML VIAL OTHER PRN (03:45)
[2017-01-09 06:46] VITALS: RESP 17
[2017-01-09] MEDS ORDERED: INSULIN NovoLIN REGULAR SUPPLEMENTAL SCALE SQ SCH (07:00)
== END 2017-01-09 10:31 | disposition short-term general hospital (02) ==
LOC: NEPD 18:11 → NEPJ 01-09 10:31
DX: F25.0 Schizoaffective disorder, bipolar type (principal); E10.65 Type 1 diabetes mellitus with hyperglycemia; Z72.0 Tobacco use; Z79.4 Long term (current) use of insulin
CPT/HCPCS: 80048; 80164; 80307; 85025; 96361; 96372; 96374; 96375; 99285; J1815; J1885; J7030

== ENCOUNTER 2017-05-11 20:17 | Inpatient (IN) | payer OTHER, MEDICARE ==
[2017-05-11 20:39] VITALS: BP 151/70; PULSE 93; RESP 16; TEMP 98.6; O2SAT 95
[2017-05-11] MEDS ORDERED: DIVA250T PO (21:02)
[2017-05-11 21:06] LABS: AUTOMATED NEUTROPHIL # 4.8 TH/MM3 (1.8-7.7); BASOPHIL # 0.1 TH/MM3 (0-0.2); BASOPHIL % 1.2 % (0.0-2.0); EOSINOPHIL % 0.4 % (0.0-4.0); HEMATOCRIT 44.7 % (35.0-46.0); HEMOGLOBIN 15.5 GM/DL (11.6-15.3); LYMPH % 21.6 % (9.0-44.0); LYMPHOCYTE # 1.5 TH/MM3 (1.0-4.8); MEAN CELL VOLUME 92.9 FL (80.0-100.0); MEAN CORPUSCULAR HEMOGLOBIN 32.1 PG (27.0-34.0); MEAN CORPUSCULAR HGB CONC 34.6 % (32.0-36.0); MEAN PLATELET VOLUME 8.6 FL (7.0-11.0); MONO % 5.1 % (0.0-8.0); MONOCYTE # 0.3 TH/MM3 (0-0.9); NEUT % 71.7 % (16.0-70.0); PLATELET COUNT 243 TH/MM3 (150-450); RED BLOOD COUNT 4.81 MIL/MM3 (4.00-5.30); RED CELL DISTRIBUTION WIDTH 13.7 % (11.6-17.2); WHITE BLOOD COUNT 6.7 TH/MM3 (4.0-11.0)
[2017-05-11] MEDS ORDERED: INSULIN HUMAN REGULAR 1,000 UNITS/10 ML VIAL SQ ONE (21:15)
[2017-05-11 21:31] LABS: ALBUMIN 3.3 GM/DL (3.4-5.0); ALKALINE PHOSPHATASE 95 U/L (45-117); ALT (GPT) 23 U/L (10-53); AST (GOT) 17 U/L (15-37); BICARBONATE 24.9 MEQ/L (21.0-32.0); BLOOD UREA NITROGEN 20 MG/DL (7-18); CALCIUM 8.7 MG/DL (8.5-10.1); CHLORIDE 98 MEQ/L (98-107); CREATININE 1.01 MG/DL (0.50-1.00); GLOMERULAR FILTRATION RATE 57 ML/MIN (>89); SODIUM (NA) 133 MEQ/L (136-145); TOTAL BILIRUBIN ADULT 0.4 MG/DL (0.2-1.0); TOTAL PROTEIN 7.1 GM/DL (6.4-8.2)
[2017-05-11 21:39] LABS: ACETAMINOPHEN LESS THAN 2.0 MCG/ML (10.0-30.0)
[2017-05-11 21:40] LABS: GLUCOSE,RANDOM 418 MG/DL (74-106)
[2017-05-11 22:35] VITALS: BP 138/63; PULSE 83; RESP 18; TEMP 98.7; O2SAT 95
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
[2017-05-11] MEDS ORDERED: GLUCAGON 1 MG/ML VIAL OTHER PRN (23:30)
[2017-05-11] MEDS ORDERED: DEXTROSE 50% IN WATER 50 ML VIAL(D50) IV PUSH PRN (23:30)
[2017-05-12 00:57] VITALS: BP 115/58; PULSE 94; RESP 18; TEMP 97.2; O2SAT 98
[2017-05-12 06:14] VITALS: BP 107/55; PULSE 82; RESP 17; TEMP 98.6; O2SAT 98
[2017-05-12] MEDS: MEDIUM DOSE INSULIN NOVOLIN REGULAR SUPPLEMENTAL SCALE SQ SCH ×4 (07:55→21:22)
[2017-05-12] MEDS: NICOTINE 21 MG/24 HR PATCH T-DERMAL SCH (08:02)
[2017-05-12] MEDS ORDERED: OLANZapine 5 MG TAB PO SCH (09:00)
[2017-05-12] MEDS: ARIPiprazole 10 MG TAB PO SCH (10:00)
[2017-05-12] MEDS: INSULIN DETEMIR 100 UNITS/ML VIAL SQ SCH ×2 (10:00→21:22)
[2017-05-12] MEDS: DIVALPROEX SODIUM DELAYED RELEASE 250 MG TAB PO SCH ×2 (10:00→21:21)
[2017-05-12 10:48] LABS: BICARBONATE 25.5 MEQ/L (21.0-32.0); BLOOD UREA NITROGEN 18 MG/DL (7-18); CALCIUM 8.7 MG/DL (8.5-10.1); CHLORIDE 103 MEQ/L (98-107); CREATININE 0.95 MG/DL (0.50-1.00); GLOMERULAR FILTRATION RATE 61 ML/MIN (>89); GLUCOSE,RANDOM 363 MG/DL (74-106); SODIUM (NA) 136 MEQ/L (136-145)
[2017-05-12 10:49] LABS: CHOLESTEROL 231 MG/DL (120-200)
[2017-05-12 11:00] LABS: CHOLESTEROL/ HDL RATIO 2.56 RATIO; HDL CHOLESTEROL 89.9 MG/DL (40.0-60.0); LDL CHOLESTEROL 124 MG/DL (0-99); TRIGLYCERIDES 85 MG/DL (42-150)
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
[2017-05-12 14:59] LABS: HEMOGLOBIN A1C 12.2 % (4.3-6.0)
[2017-05-12] MEDS ORDERED: LORazepam 2 MG TAB PO PRN (15:45)
[2017-05-12] MEDS ORDERED: FLUMAZENIL 0.5 MG/5 ML VIAL IV PUSH PRN (15:45)
[2017-05-12] MEDS ORDERED: LORazepam 2 MG/ML VIAL IM PRN ×4 (15:45)
[2017-05-12] MEDS ORDERED: LORazepam 1 MG TAB PO PRN (15:45)
[2017-05-12] MEDS: REMOVE OLD NICOTINE PATCH T-DERMAL SCH (21:00)
[2017-05-12] MEDS: ATORVASTATIN 10 MG TAB PO SCH (21:21)
--- NOTE | 2017-05-12 22:16 | EKG ---
Date Performed: 05/12/2017 Time Performed: 10:17:49 PTAGE: 52 years EKG: Sinus rhythm POSSIBLE RIGHT ATRIAL ENLARGEMENT POSSIBLE LEFT ATRIAL ENLARGEMENT BORDERLINE ECG PREVIOUS TRACING : 03/05/2016 09.52 Compared to prior tracing no significant change DOCTOR: Jonathan Faye Interpretating Date/Time 05/12/2017 22:15:45
[2017-05-13 06:09] VITALS: BP 104/54; PULSE 74; RESP 17; TEMP 98.4; O2SAT 95
[2017-05-13] MEDS: MEDIUM DOSE INSULIN NOVOLIN REGULAR SUPPLEMENTAL SCALE SQ SCH ×4 (07:42→22:02)
[2017-05-13] MEDS: NICOTINE 21 MG/24 HR PATCH T-DERMAL SCH (09:00)
[2017-05-13] MEDS: INSULIN DETEMIR 100 UNITS/ML VIAL SQ SCH ×2 (09:13→21:00)
[2017-05-13] MEDS: THIAMINE HCL 100 MG TAB PO SCH (09:22)
[2017-05-13] MEDS: ARIPiprazole 10 MG TAB PO SCH (09:22)
[2017-05-13] MEDS: FOLIC ACID 1 MG TAB PO SCH (09:22)
[2017-05-13] MEDS: LISINOPRIL 10 MG TAB PO SCH (09:22)
[2017-05-13] MEDS: DIVALPROEX SODIUM DELAYED RELEASE 250 MG TAB PO SCH ×2 (09:22→21:16)
--- NOTE | 2017-05-13 11:03 | HHI.PR ---
Subjective Remarks in no acute distress. complaining of some back pain and anxiety. d/w the RN. Objective Vitals Vital Signs Date Time Temp Pulse Resp B/P (MAP) Pulse Ox O2 Delivery O2 Flow Rate FiO2 05/13/17 06:09 98.4 74 17 104/54 (71 95 Result Diagram: 05/11/17204905/12/17 0647 Objective Remarks GENERAL: This is a well-nourished, well-developed patient, in no apparent distress. CARDIOVASCULAR: Regular rate and regular rhythm without murmurs, gallops, or rubs. RESPIRATORY: Clear to auscultation. Breath sounds equal bilaterally. No wheezes , rales, or rhonchi. GASTROINTESTINAL: Abdomen soft, non-tender, nondistended. Normal, active bowel sounds MUSCULOSKELETAL: Extremities without clubbing, cyanosis, or edema. NEURO: Alert & Oriented x4 to person, place, time, situation. Moves all ext x4 Medications and IVs Inpatient Medications Aripiprazole (Abilify) 10 mg DAILY PO Last administered on 05/13/17 09:22; Start 05/12/17 at 10:00 Atorvastatin Calcium (Lipitor) 10 mg HS PO Last administered on 05/12/17 21: 21; Start 05/12/17 at 21:00 Dextrose (D50w (Vial) Inj) 50 ml UNSCH PRN IV PUSH HYPOGLYCEMIA - SEE COMMENTS ; Start 05/11/17 at 23:30 Divalproex Sodium (Depakote Dr) 250 mg BID PO Last administered on 05/13/17 09:22; Start 05/12/17 at 10:00 Flumazenil (Romazicon Inj) 0.2 mg Q1M PRN IV PUSH SEE LABEL COMMENTS; Start at 15:45 Folic Acid (Folate) 1 mg DAILY PO Last administered on 05/13/17 09:22; Start 05/13/17 at 09:00 Glucagon (Glucagon Inj) 1 mg UNSCH PRN OTHER HYPOGLYCEMIA-SEE COMMENTS; Start 05/11/17 at 23:30 Insulin Detemir (Levemir Inj) 17 units BID SQ Last administered on 05/13/17 09:13; Start 05/12/17 at 10:00 Insulin Human Regular (NovoLIN R SUPPLEMENTAL SCALE) 1 ACHS SLIDING SCALE SQ Last administered on 05/13/17 07:42; Start 05/12/17 at 08:00 Insulin Human Regular (NovoLIN R INJ) 8 units ONCE ONCE SQ Last administered on 05/11/17 21:14; Start 05/11/17 at 21:15; Stop 05/11/17 at 21:16; Status DC Lisinopril (Prinivil) 10 mg DAILY PO Last administered on 05/13/17 09:22; Start 05/13/17 at 09:00 Lorazepam (Ativan Inj) 2 mg Q15M PRN IM CIWA > 20; Start 05/12/17 at 15:45 Lorazepam (Ativan) 2 mg Q2H PRN PO CIWA 11-14; Start 05/12/17 at 15:45 Miscellaneous Information 1 HS T-DERMAL Last administered on 05/12/17 21:00; Start 05/12/17 at 21:00 Nicotine (Habitrol 21 Mg Patch.24 Hr) 1 patch DAILY T-DERMAL Last administered on 05/12/17 08:02; Start 05/12/17 at 09:00 Olanzapine (ZyPREXA) 5 mg BID PO Last administered on 05/12/17 07:56; Start 05/12/17 at 09:00; Stop 05/12/17 at 15:36; Status DC Thiamine HCl (Vitamin B1) 100 mg DAILY PO Last administered on 05/13/17 09:22 ; Start 05/13/17 at 09:00 A/P Assessment and Plan - uncontrolled diabetes mellitus; non-compliant with the meds- overall improving. resumed long acting insulin- continue with accu-check / SSI- A1c 12.2. continue to monitor the accu-checks and adjust the regimen as needed. -hypertension; resume lisinopril- will monitor BP -dyslipidemia; started on statin- f/u as outpatient -seizure disorder; resumed home meds -back pain; will verify the home meds ( d/w the RN). -psychosis?- management per psych Tomás Ware MD May 13, 2017 11:03
--- NOTE | 2017-05-13 13:20 | HHI.PYPN ---
Subjective Remarks Patient was seen and case discussed with nursing. We reviewed her history and patient denies a history of psychosis or schizoaffective disorder as stated in the chart. Insight is poor concerning her admission. She notes "feeling clear with Abilify" Denies auditory visual hallucinations. Quite pleasant during the interview. Mental Status Examination Appearance: Appropriate Consciousness: Alert Orientation: Person, Place, Date/Time Motor Activity: Normal gait Speech: Rapid Language: Adequate Fund of Knowledge: Adequate Attention and Concentration: Adequate Memory: Unremarkable Mood: Appropriate Affect: Anxious, Other (perseverative) Thought Process & Associations: Disorganized Thought Content: Preoccupations Hallucination Type: None Delusion Type: None Suicidal Ideation: No Suicidal Plan: No Suicidal Intention: No Homicidal Ideation: No Homicidal Plan: No Homicidal Intention: No Results Vitals/IOs Vital Signs Date Time Temp Pulse Resp B/P (MAP) Pulse Ox O2 Delivery O2 Flow Rate FiO2 05/13/17 06:09 98.4 74 17 104/54 (71) 95 05/11/17 22:35 Room Air Intake and Output 05/13/17 05/13/17 05/14/17 08:00 16:00 00:00 Intake Total 480 ml Balance 480 ml Assessment & Plan Problem List: (1) Schizoaffective disorder ICD Codes: F25.9 - Schizoaffective disorder, unspecified Status: Acute Assessment & Plan Continue current treatment plan Justification for Cont. Inpt. Patient would decompensate in a less restrictive setting Martin Murray DO May 13, 2017 13:20
[2017-05-13 18:10] VITALS: BP 119/61; PULSE 62; RESP 16; TEMP 97.8; O2SAT 98
[2017-05-13] MEDS: REMOVE OLD NICOTINE PATCH T-DERMAL SCH (21:00)
[2017-05-13] MEDS: ATORVASTATIN 10 MG TAB PO SCH (21:16)
[2017-05-13] MEDS: hydrOXYzine HCL 50 MG TAB PO PRN (21:16)
[2017-05-14] MEDS: hydrOXYzine HCL 50 MG TAB PO PRN ×2 (05:14→15:47)
[2017-05-14 06:17] VITALS: BP 132/70; PULSE 89; RESP 16; TEMP 97.4
[2017-05-14] MEDS: MEDIUM DOSE INSULIN NOVOLIN REGULAR SUPPLEMENTAL SCALE SQ SCH ×4 (07:42→21:00)
[2017-05-14] MEDS: INSULIN DETEMIR 100 UNITS/ML VIAL SQ SCH ×2 (07:43→21:12)
[2017-05-14] MEDS: LISINOPRIL 10 MG TAB PO SCH (08:25)
[2017-05-14] MEDS: DIVALPROEX SODIUM DELAYED RELEASE 250 MG TAB PO SCH ×2 (08:25→21:11)
[2017-05-14] MEDS: THIAMINE HCL 100 MG TAB PO SCH (08:25)
[2017-05-14] MEDS: FOLIC ACID 1 MG TAB PO SCH (08:25)
[2017-05-14] MEDS: NICOTINE 21 MG/24 HR PATCH T-DERMAL SCH (08:26)
[2017-05-14] MEDS: ARIPiprazole 10 MG TAB PO SCH (08:27)
--- NOTE | 2017-05-14 10:18 | HHI.PYPN ---
Subjective Remarks Patient was seen and case discussed with nursing. Patient has been refusing her Abilify. Patient says that her decided that her treatment should be higher dose of Depakote. Psychoeducation was done how patient cannot choose her own medication should he did advice of her psychiatrist. She says that Abilify gave her akathisia, pacing. She is willing to take latuda. Mental Status Examination Appearance: Appropriate Consciousness: Alert Orientation: Person, Place, Date/Time Motor Activity: Normal gait Speech: Rapid Language: Adequate Fund of Knowledge: Adequate Attention and Concentration: Adequate Memory: Unremarkable Mood: Oppositional Affect: Anxious, Other (perseverative) Thought Process & Associations: Circumstantial Thought Content: Preoccupations Hallucination Type: None Delusion Type: None Suicidal Ideation: No Suicidal Plan: No Suicidal Intention: No Homicidal Ideation: No Homicidal Plan: No Homicidal Intention: No Results Vitals/IOs Vital Signs Date Time Temp Pulse Resp B/P (MAP) Pulse Ox O2 Delivery O2 Flow Rate FiO2 05/14/17 06:17 97.4 89 16 132/70 (90) 05/13/17 18:10 98 05/11/17 22:35 Room Air Assessment & Plan Problem List: (1) Schizoaffective disorder ICD Codes: F25.9 - Schizoaffective disorder, unspecified Status: Acute Assessment & Plan CATHERINE Lugo, start latuda 40 mg daily with dinner Justification for Cont. Inpt. Patient would decompensate in a less restrictive setting Martin Murray DO May 14, 2017 10:18
--- NOTE | 2017-05-14 11:25 | HHI.PR ---
Subjective Remarks looks and feels better today. blood sugar trend noted. d/w the RN and no acute issues over night. Objective Vitals Vital Signs Date Time Temp Pulse Resp B/P (MAP) Pulse Ox O2 Delivery O2 Flow Rate FiO2 05/14/17 06:17 97.4 89 16 132/70 (90) 05/13/17 18:10 97.8 62 16 119/61 (80) 98 I/O 05/13/17 05/13/17 05/13/17 05/14/17 05/14/17 05/14/17 07:00 15:00 23:00 07:00 15:00 23:00 Intake Total 480 ml 240 ml Balance 480 ml 240 ml Intake Oral 480 ml 240 ml Result Diagram: 05/11/17204905/12/17646 Objective Remarks GENERAL: This is a well-nourished, well-developed patient, in no apparent distress. CARDIOVASCULAR: Regular rate and regular rhythm without murmurs, gallops, or rubs. RESPIRATORY: Clear to auscultation. Breath sounds equal bilaterally. No wheezes , rales, or rhonchi. GASTROINTESTINAL: Abdomen soft, non-tender, nondistended. Normal, active bowel sounds MUSCULOSKELETAL: Extremities without clubbing, cyanosis, or edema. NEURO: Alert & Oriented x4 to person, place, time, situation. Moves all ext x4 Medications and IVs Inpatient Medications Aripiprazole (Abilify) 10 mg DAILY PO Last administered on 05/13/17 09:22; Start 05/12/17 at 10:00; Stop 05/14/17 at 10:19; Status DC Atorvastatin Calcium (Lipitor) 10 mg HS PO Last administered on 05/13/17 21: 16; Start 05/12/17 at 21:00 Dextrose (D50w (Vial) Inj) 50 ml UNSCH PRN IV PUSH HYPOGLYCEMIA - SEE COMMENTS ; Start 05/11/17 at 23:30 Divalproex Sodium (Depakote Dr) 250 mg BID PO Last administered on 05/14/17 08:25; Start 05/12/17 at 10:00 Flumazenil (Romazicon Inj) 0.2 mg Q1M PRN IV PUSH SEE LABEL COMMENTS; Start at 15:45 Folic Acid (Folate) 1 mg DAILY PO Last administered on 05/14/17 08:25; Start 05/13/17 at 09:00 Glucagon (Glucagon Inj) 1 mg UNSCH PRN OTHER HYPOGLYCEMIA-SEE COMMENTS; Start 05/11/17 at 23:30 Hydroxyzine HCl (Atarax) 50 mg Q6H PRN PO ANXIETY Last administered on 05:14; Start 05/13/17 at 17:30 Insulin Detemir (Levemir Inj) 17 units BID SQ Last administered on 05/14/17 07:43; Start 05/12/17 at 10:00 Insulin Human Regular (NovoLIN R SUPPLEMENTAL SCALE) 1 ACHS SLIDING SCALE SQ Last administered on 05/14/17 07:42; Start 05/12/17 at 08:00 Insulin Human Regular (NovoLIN R INJ) 8 units ONCE ONCE SQ Last administered on 05/11/17 21:14; Start 05/11/17 at 21:15; Stop 05/11/17 at 21:16; Status DC Lisinopril (Prinivil) 10 mg DAILY PO Last administered on 05/14/17 08:25; Start 05/13/17 at 09:00 Lorazepam (Ativan Inj) 2 mg Q15M PRN IM CIWA > 20; Start 05/12/17 at 15:45 Lorazepam (Ativan) 2 mg Q2H PRN PO CIWA 11-14; Start 05/12/17 at 15:45 Lurasidone HCl (Latuda) 40 mg WITH DINNER PO ; Start 05/14/17 at 18:00 Miscellaneous Information 1 HS T-DERMAL Last administered on 05/13/17 21:00; Start 05/12/17 at 21:00 Nicotine (Habitrol 21 Mg Patch.24 Hr) 1 patch DAILY T-DERMAL Last administered on 05/12/17 08:02; Start 05/12/17 at 09:00 Olanzapine (ZyPREXA) 5 mg BID PO Last administered on 05/12/17 07:56; Start 05/12/17 at 09:00; Stop 05/12/17 at 15:36; Status DC Thiamine HCl (Vitamin B1) 100 mg DAILY PO Last administered on 05/14/17 08:25 ; Start 05/13/17 at 09:00 A/P Assessment and Plan - uncontrolled diabetes mellitus; non-compliant with the meds- overall improving. resumed long acting insulin- continue with accu-check / SSI- A1c 12.2. f/u as outpatient with her PCP. -hypertension;controlled- resumed lisinopril- -dyslipidemia; started on statin- f/u as outpatient -seizure disorder; resumed home meds -back pain; better today. -psychosis?- management per psych [facility] will sign off and see her as needed. d/w the RN. Tomás Ware MD May 14, 2017 11:25
[2017-05-14] MEDS: IBUPROFEN 800 MG TAB PO PRN (15:47)
[2017-05-14 18:00] VITALS: BP 135/72; PULSE 69; RESP 16; TEMP 97.9; O2SAT 97
[2017-05-14] MEDS: LURASIDONE 40 MG TAB PO SCH (18:40)
[2017-05-14] MEDS: REMOVE OLD NICOTINE PATCH T-DERMAL SCH (21:00)
[2017-05-14] MEDS: ATORVASTATIN 10 MG TAB PO SCH (21:12)
[2017-05-15] MEDS: IBUPROFEN 800 MG TAB PO PRN ×2 (04:59→17:49)
[2017-05-15 05:33] VITALS: BP 107/60; PULSE 88; RESP 18; TEMP 97.7; O2SAT 97
[2017-05-15] MEDS: MEDIUM DOSE INSULIN NOVOLIN REGULAR SUPPLEMENTAL SCALE SQ SCH ×4 (06:58→21:25)
[2017-05-15] MEDS: DIVALPROEX SODIUM DELAYED RELEASE 250 MG TAB PO SCH ×2 (08:06→21:24)
[2017-05-15] MEDS: THIAMINE HCL 100 MG TAB PO SCH (08:06)
[2017-05-15] MEDS: FOLIC ACID 1 MG TAB PO SCH (08:07)
[2017-05-15] MEDS: LISINOPRIL 10 MG TAB PO SCH (08:07)
[2017-05-15] MEDS: INSULIN DETEMIR 100 UNITS/ML VIAL SQ SCH ×2 (08:11→21:24)
[2017-05-15] MEDS: NICOTINE 21 MG/24 HR PATCH T-DERMAL SCH (08:13)
[2017-05-15] MEDS: hydrOXYzine HCL 50 MG TAB PO PRN ×2 (09:28→15:31)
--- NOTE | 2017-05-15 12:09 | HHI.PYPN ---
Subjective Remarks Patient seen and examined with nurse. Chart reviewed. I note that the patient was switched by the weekend rounding physician from Abilify to Latuda. Case discussed with nursing staff who reports that the patient seems improved and has been compliant with medications overnight. On my examination today, the patient presents with some ongoing irritability. There are some ongoing subtle signs of thought disorder. Some residual intrusiveness. She says that she has talked it over with her and would like to try to titrate her Depakote back to the 500 mg twice a day that she was previously taking. She denies any SI or HI. Denies any AVH. Denies side effects from medications. No physical complaints. Review of Systems Except as stated in HPI: all other systems reviewed are Neg Mental Status Examination Appearance: Appropriate Consciousness: Alert Orientation: Person, Place (at least) Motor Activity: Normal gait Speech: Unremarkable Language: Adequate Fund of Knowledge: Adequate Attention and Concentration: Adequate Memory: Unremarkable Mood: Irritable Affect: Irritable Thought Process & Associations: Circumstantial Thought Content: Preoccupations Hallucination Type: None Delusion Type: None Suicidal Ideation: No Suicidal Plan: No Suicidal Intention: No Homicidal Ideation: No Homicidal Plan: No Homicidal Intention: No Insight: Fair Judgment: Adequate (fair at best) Results Labs Test 05/15/17 08:30 Ammonia 32 MCMOL/L Valproic Acid (Depakene) Level 53 MCG/ML Labs reviewed. Ammonia level is not elevated. Depakote level was obtained shortly after morning dose was given and so is likely artificially elevated; it is just within the therapeutic range. Vitals/IOs Vital Signs Date Time Temp Pulse Resp B/P (MAP) Pulse Ox O2 Delivery O2 Flow Rate FiO2 05/15/17 05:33 97.7 88 18 107/60 (76) 97 05/11/17 22:35 Room Air Intake and Output 05/15/17 05/15/17 05/16/17 08:00 16:00 00:00 Intake Total 240 ml Balance 240 ml Assessment & Plan Problem List: (1) Schizoaffective disorder ICD Codes: F25.9 - Schizoaffective disorder, unspecified Status: Acute Assessment & Plan Titrate Depakote to 500 mg twice daily for mood stabilization with plans for a follow-up level after appropriate interval. I did discuss also possibly titrating patient's Latuda, but she wishes to keep the dose unchanged on this agent for now. Continue to monitor on the inpatient unit. Continue other medications and care as ordered. Justification for Cont. Inpt. Med changes. Risk for decompensation in less restrictive environment. Discharge Planning Anticipate discharge within the next 1-2 days. Request HC Surrog/Guard Advoc?: No Problem Qualifiers (1) Schizoaffective disorder: Qualified Codes: F25.0 - Schizoaffective disorder, bipolar type Jamil Mcintosh MD May 15, 2017 12:09
[2017-05-15] MEDS ORDERED: DIVALPROEX SODIUM DELAYED RELEASE 250 MG TAB PO ONE (12:15)
[2017-05-15] MEDS: LURASIDONE 40 MG TAB PO SCH (17:22)
[2017-05-15 18:18] VITALS: BP 148/77; PULSE 73; RESP 18; TEMP 97.6; O2SAT 100
[2017-05-15] MEDS: REMOVE OLD NICOTINE PATCH T-DERMAL SCH (21:00)
[2017-05-15] MEDS: ATORVASTATIN 10 MG TAB PO SCH (21:24)
[2017-05-16] MEDS: IBUPROFEN 800 MG TAB PO PRN (02:06)
[2017-05-16] MEDS: hydrOXYzine HCL 50 MG TAB PO PRN (02:06)
[2017-05-16 05:56] VITALS: BP 126/66; PULSE 78; RESP 18; TEMP 97.8; O2SAT 99
[2017-05-16] MEDS: MEDIUM DOSE INSULIN NOVOLIN REGULAR SUPPLEMENTAL SCALE SQ SCH ×2 (07:31→12:00)
[2017-05-16] MEDS: FOLIC ACID 1 MG TAB PO SCH (08:41)
[2017-05-16] MEDS: DIVALPROEX SODIUM DELAYED RELEASE 250 MG TAB PO SCH (08:42)
[2017-05-16] MEDS: THIAMINE HCL 100 MG TAB PO SCH (08:42)
[2017-05-16] MEDS: LISINOPRIL 10 MG TAB PO SCH (08:42)
[2017-05-16] MEDS: NICOTINE 21 MG/24 HR PATCH T-DERMAL SCH (09:00)
[2017-05-16] MEDS: INSULIN DETEMIR 100 UNITS/ML VIAL SQ SCH (09:49)
[2017-05-16] MEDS ORDERED: DIVA250T PO (11:20)
[2017-05-16] MEDS ORDERED: LIPI10TA PO (11:20)
[2017-05-16] MEDS ORDERED: LURA40 PO (11:20)
--- NOTE | 2017-05-16 11:21 | HHI.DS ---
Psychiatry Discharge Summary Inpatient Psychiatric care?: Yes Advance Directive: No Reason Not Provided: doesnt have Mental Health AdvanceDirective: No Health Care Proxy: No Admission Admission Date May 11, 2017 at 23:21 Admission Diagnosis: (1) Schizoaffective disorder ICD Code: F25.9 - Schizoaffective disorder, unspecified Brief History Ms. Cortez is a 52-year-old female with a history of schizoaffective disorder who presents under a [place] Act by law enforcement. The [place] Act alleges that the patient has been aggressive towards her , nonadherent with medications and may have been using alcohol. Psychiatric screening note reviewed. ED provider note reviewed. Reviewing our electronic medical record, I note the patient was admitted here most recently under my care chiefly in November of this year and was stabilized at that time on a combination of Zyprexa and Depakote. Patient seen and examined with nurse. Chart reviewed. Case discussed with nursing staff. The patient has been noted to verbalize some psychotic material since arriving on the unit but has not really been any behavioral problem. On my examination today, the patient presents as somewhat disheveled and malodorous. Thought process is tangential. Speech is rapid. She says, "The only reason I am having moods is because someone snuck into the house." Sleep and appetite are reportedly fair. The patient is unable to say whether she is experiencing audiovisual hallucinations. When I ask her about this, she says, "My biological father is [employer]. My biological father is [employer] and when you have airplanes, you cannot have medical problems." The patient denies any racing thoughts. She denies any suicidal or homicidal ideation but seems unreliable to contract for safety. She does have some bizarre ideation but no paranoia, no reported ideas of reference or thought insertion/withdrawal. No depressive symptoms. The remainder of the psychiatric ROS is negative. The patient has no physical complaints at this time. Tobacco Use In Past 30 Days: 5 or More Cigarettes/Day Alcohol Use: 2-3 Times Per Week Hospital Course Patient was admitted to a locked, inpatient psychiatric unit. A general medical consultation was obtained. Appropriate precautions were in place throughout patient's hospital stay. Patient was seen and examined daily on the unit by psychiatry and also visited by counselor. Psychotropic medications were adjusted. Patient was unable to tolerate Abilify but tolerated Latuda well. Her Depakote level was found to be subtherapeutic on outpatient dose, and so dose of Depakote was titrated. Patient had improvement in presenting psychiatric symptomatology during the course of her hospital stay. There was no evidence of any suicidality or homicidality on the inpatient unit. She was transitioned successfully from the high acuity to the lower acuity inpatient unit. On the day of discharge: Patient seen and examined with nurse. Chart reviewed. Case discussed in treatment team with counselor and occupational therapist. Case discussed with nurse who reports that the patient has been mildly intrusive but otherwise no real behavioral problem. On my examination today, the patient is requesting discharge from the inpatient psychiatric unit today. She denies any suicidal or homicidal ideation, intent or plan on direct questioning and contracts for safety. Mood is reportedly stable, and I can elicit no depressive or hypomanic/manic symptoms. She denies any audiovisual hallucinations. I can elicit no delusional beliefs. She denies any anxiety. She denies any side effects from medications. She asks relevant questions regarding her psychotropic medications, which I have answered for her. I have reminded her that she will need to obtain a Depakote level after discharge and have instructed her that this must be obtained prior to her morning dose of Depakote. She has no physical complaints. Suicide and violence risk assessment on day of discharge both suggest lower imminent risk, and patient's level of function is adequate for outpatient care. The patient does not meet criteria for involuntary psychiatric hospitalization at this time and is insisting upon discharge from the inpatient psychiatric unit today. I have no basis to retain her on the unit over her objection at this time. The patient did express concern about the possible cost of Latuda as she has checked with her insurer, and I did offer to retain her voluntarily to switch to a more affordable agent, but she declines this. Patient will be discharged home today with psychiatric follow-up as arranged by counselor. Patient is also to follow- up with primary care. I have counseled the patient to abstain from substances of abuse. I counseled the patient to return to the psychiatric emergency room for any concerning psychiatric symptoms as part of a general safety plan. Results Blood Pressure 126 / 66 Vital Signs Date Time Temp Pulse Resp B/P (MAP) Pulse Ox O2 Delivery O2 Flow Rate FiO2 05/16/17 05:56 97.8 78 18 126/66 (86) 99 Laboratory Tests Test 05/15/17 08:30 Laboratory Results Test 05/12/17 06:47 05/15/17 08:30 Cholesterol Level 231 MG/DL (120-200) HDL Cholesterol 89.9 MG/DL (40.0-60.0) Hemoglobin A1c 12.2 % (4.3-6.0) LDL Cholesterol 124 MG/DL (0-99) Triglycerides Level 85 MG/DL (42-150) Valproic Acid (Depakene) Level 53 MCG/ML (50-100) Summary of Procedures None done Imaging None done Pending results at discharge: No Medications # of Antipsychotic meds at D/C: 1 Approp Antipsych med options 1 - Minimum of three failed multiple trials of monotherapy. 2 - Documented plan to taper to monotherapy due to previous use of multiple meds OR cross-taper in progress at D/C. 3 - Documentation of augmentation of Clozapine. 4 - Justification other than those listed in allowable values 1-3, document here : Discharge Discharge Date: May 16, 2017 Discharge Diagnosis: (1) Schizoaffective disorder Diagnosis: Principal ICD Code: F25.9 - Schizoaffective disorder, unspecified Status: Acute Pt Condition on Discharge: Stable Discharge Disposition: Discharge Home Discharge Instructions Diet Instructions: Diabetic Diet Activities you can perform: Weight Bearing as Dyan Scheduled Appointment: as per counselor's notes New Orders: AMMONIA - 3-5 Days BASIC METABOLIC PROF - 1 Week DEPAKENE - 3-5 Days New Medications: Atorvastatin (Lipitor) 10 Mg Tab 10 MG PO HS for Cholesterol Management for 15 Days, TAB [address] (Divalproex DR) 250 Mg Tabdr 500 MG PO BID for Mental Health for 15 Days, #60 TAB 1 Refill Lurasidone (Latuda) 40 Mg Tab 40 MG PO WITH DINNER for Mental Health for 15 Days, #15 TAB 1 Refill Continued Medications: Insulin Detemir Inj (Levemir Inj) 1,000 unit/ 10 ML Vial 17 UNITS SQ BID for Blood Sugar Management for 15 Days, INJECTION 1 Refill Lisinopril (Lisinopril) 10 Mg Tab 10 MG PO DAILY, #30 TAB 0 Refills Discontinued Medications: Divalproex DR (Divalproex DR) 250 Mg Tabdr 250 MG PO BID for Control Seizures, #60 TAB 0 Refills Oxycodone-Acetaminophen (Oxycodone-Acetaminophen) 10-325 mg Tab 1 TAB PO Q6H PRN for PAIN, TAB 0 Refills Discharge Time <= 30 minutes Mental Status Examination Appearance: Appropriate Consciousness: Alert Orientation: x4 Motor Activity: Normal gait, Other (no motor abnormalities noted. No hand tremor, no dystonia, no dyskinesia appreciated.) Speech: Unremarkable Language: Adequate Fund of Knowledge: Adequate Attention and Concentration: Adequate Memory: Unremarkable Mood: Appropriate Affect: Appropriate Thought Process & Associations: Intact, Linear Thought Content: Appropriate, Preoccupations Hallucination Type: None Delusion Type: None Suicidal Ideation: No Suicidal Plan: No Suicidal Intention: No Homicidal Ideation: No Homicidal Plan: No Homicidal Intention: No Insight: Fair Judgment: Adequate (fair) Discharge/Advance Care Plan Health Problems: (1) Schizoaffective disorder Goals to promote your health * To prevent worsening of your condition and complications * To maintain your health at the optimal level Directions to meet your goals Take your medications as prescribed Follow your dietary instruction Follow activity as directed Keep your appointments as scheduled Take your immunizations and boosters as scheduled If your symptoms worsen call your PCP, if no PCP go to Urgent Care Center or Emergency Room For 12/12 questions related to your inpatient stay or results of tests pending at discharge, please contact Dr. Jamil Mcintosh at Smoking is Dangerous to Your Health. Avoid second hand smoking Problem Qualifiers (1) Schizoaffective disorder: Qualified Codes: F25.0 - Schizoaffective disorder, bipolar type Jamil Mcintosh MD May 16, 2017 11:21
--- NOTE | 2017-05-16 12:42 | PD.TTN ---
Patient Problems 1. Discharge planning 2. Medication compliance 3. Knowledge deficit 4. Lack of coping skills Progress Toward Goals Provider Present: Dr. Mary Mcintosh Provider Input: 05/16/17 - Dr. Mcintosh requested this counselor contact patient's to discuss any concerns he may have if patient is discharged home today. Psychiatric Counselors Present: ASTRID Fajardo Psych Therapist Input: 05/16/17 - Counselor will caontact patient's regarding discharge. Group Spec/RT/OT/RAMIREZ Present: JAMES Freedman Group Spec/RT/OT/RAMIREZ Input: Patient attends most groups and is pleasant. Documentation Scribe: ASTRID Fajardo Date Resolved: May 16, 2017 Teaching Recipient: Patient JazlynBatsheva RESENDIZ May 16, 2017 12:42
== END 2017-05-16 14:20 | disposition home or self-care (01) | DRG 885 ==
LOC: NEPJ 20:17 → NEDA 23:21 → H270 05-12 00:13 → H260 05-12 14:00
PROVIDERS: ADMIT Psychiatry & Neurology Psychiatry; ATTEND Psychiatry & Neurology Psychiatry
DX: F25.0 Schizoaffective disorder, bipolar type (principal); I42.9 Cardiomyopathy, unspecified; I10 Essential (primary) hypertension; E78.00 Pure hypercholesterolemia, unspecified; E07.9 Disorder of thyroid, unspecified; E11.65 Type 2 diabetes mellitus with hyperglycemia; G40.909 Epilepsy, unspecified, not intractable, without status epilepticus; E78.5 Hyperlipidemia, unspecified; G89.29 Other chronic pain; M54.2 Cervicalgia; M54.9 Dorsalgia, unspecified; M19.90 Unspecified osteoarthritis, unspecified site; F17.210 Nicotine dependence, cigarettes, uncomplicated; Z79.4 Long term (current) use of insulin; Z88.1 Allergy status to other antibiotic agents; Z88.5 Allergy status to narcotic agent; Z91.040 Latex allergy status; Z91.14 Patient's other noncompliance with medication regimen
CPT/HCPCS: 80048; 80053; 80061; 80164; 80307; 82140; 82948; 83036; 84439; 84443; 84703; 85025; 93005; 96372; J1815

== ENCOUNTER 2017-08-10 08:27 | Emergency (ER) | payer MEDICARE, OTHER ==
[~2017-08-10] VITALS: Ht 170.2 cm; Wt 60.0 kg
[~2017-08-10 08:27] MED LIST changes: +DIVA250T PO; -DIVA500T PO; +LIPI10TA PO; +LURA40 PO; -OLAN10TA PO; -OXYC1TAB36 PO; -SIMV40TA PO
[2017-08-10 08:29] VITALS: BP 126/75; PULSE 109; RESP 16; TEMP 97.4; O2SAT 98
== END 2017-08-10 08:52 | disposition left against medical advice (07) ==
LOC: NED 08:27
DX: F99 Mental disorder, not otherwise specified (principal)
CPT/HCPCS: 99281

== ENCOUNTER 2017-11-07 14:32 | Inpatient (IN) | payer OTHER, MEDICARE ==
[~2017-11-07] VITALS: Ht 172.7 cm; Wt 138.0 kg
[2017-11-07 14:50] VITALS: BP 127/67; PULSE 96; RESP 18; TEMP 99.1; O2SAT 97
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
[2017-11-07 15:52] LABS: AUTOMATED NEUTROPHIL # 3.4 TH/MM3 (1.8-7.7); BASOPHIL % 0.4 % (0.0-2.0); EOSINOPHIL # 0.1 TH/MM3 (0-0.4); EOSINOPHIL % 0.9 % (0.0-4.0); HEMATOCRIT 43.7 % (35.0-46.0); HEMOGLOBIN 14.8 GM/DL (11.6-15.3); LYMPH % 33.5 % (9.0-44.0); LYMPHOCYTE # 1.9 TH/MM3 (1.0-4.8); MEAN CELL VOLUME 92.1 FL (80.0-100.0); MEAN CORPUSCULAR HEMOGLOBIN 31.2 PG (27.0-34.0); MEAN CORPUSCULAR HGB CONC 33.9 % (32.0-36.0); MEAN PLATELET VOLUME 8.8 FL (7.0-11.0); MONO % 6.7 % (0.0-8.0); MONOCYTE # 0.4 TH/MM3 (0-0.9); NEUT % 58.5 % (16.0-70.0); PLATELET COUNT 227 TH/MM3 (150-450); RED BLOOD COUNT 4.74 MIL/MM3 (4.00-5.30); RED CELL DISTRIBUTION WIDTH 13.3 % (11.6-17.2); WHITE BLOOD COUNT 5.8 TH/MM3 (4.0-11.0)
[2017-11-07] MEDS ORDERED: LORazepam 2 MG/ML VIAL IM ONE (16:00)
[2017-11-07] MEDS ORDERED: OLANZapine IM 10 MG VIAL IM ONE (16:00)
[2017-11-07 16:09] LABS: ALBUMIN 3.5 GM/DL (3.4-5.0); AST (GOT) 16 U/L (15-37); BLOOD UREA NITROGEN 20 MG/DL (7-18); CALCIUM 8.9 MG/DL (8.5-10.1); CHLORIDE 103 MEQ/L (98-107); CREATININE 1.02 MG/DL (0.50-1.00); GLOMERULAR FILTRATION RATE 56 ML/MIN (>89); GLUCOSE,RANDOM 402 MG/DL (74-106); SODIUM (NA) 138 MEQ/L (136-145)
[2017-11-07 16:28] LABS: ACETAMINOPHEN LESS THAN 2.0 MCG/ML (10.0-30.0); ALKALINE PHOSPHATASE 79 U/L (45-117); ALT (GPT) 25 U/L (10-53); TOTAL BILIRUBIN ADULT 0.4 MG/DL (0.2-1.0); TOTAL PROTEIN 6.9 GM/DL (6.4-8.2)
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
[2017-11-07] MEDS ORDERED: MAGNESIUM HYDROXIDE SUSP 30 ML CUP PO PRN (18:00)
[2017-11-07] MEDS ORDERED: ALUMINUM/MAGNESIUM/SIMETH 30 ML CUP PO PRN (18:00)
[2017-11-07] MEDS ORDERED: ACETAMINOPHEN 325 MG TAB PO PRN (18:00)
[2017-11-07] MEDS ORDERED: GLUCAGON 1 MG/ML VIAL OTHER PRN (18:15)
[2017-11-07] MEDS ORDERED: DEXTROSE 50% IN WATER 50 ML VIAL(D50) IV PUSH PRN (18:15)
[2017-11-07] MEDS: INSULIN NovoLIN REGULAR SUPPLEMENTAL SCALE SQ SCH (19:41)
[2017-11-07] MEDS: REMOVE OLD PATCH T-DERMAL SCH (21:00)
[2017-11-07 22:38] VITALS: BP 117/68; PULSE 91; RESP 20; O2SAT 97
[2017-11-08 05:47] VITALS: BP 117/66; PULSE 87; RESP 16; TEMP 97.8; O2SAT 97
[2017-11-08 07:15] LABS: BICARBONATE 26.2 MEQ/L (21.0-32.0); BLOOD UREA NITROGEN 21 MG/DL (7-18); CALCIUM 8.1 MG/DL (8.5-10.1); CHLORIDE 111 MEQ/L (98-107); CHOLESTEROL 142 MG/DL (120-200); CHOLESTEROL/ HDL RATIO 1.94 RATIO; GLOMERULAR FILTRATION RATE 87 ML/MIN (>89); GLUCOSE,RANDOM 181 MG/DL (74-106); LDL CHOLESTEROL 60 MG/DL (0-99); SODIUM (NA) 144 MEQ/L (136-145); TRIGLYCERIDES 44 MG/DL (42-150)
[2017-11-08] MEDS: INSULIN NovoLIN REGULAR SUPPLEMENTAL SCALE SQ SCH ×4 (08:00→21:00)
[2017-11-08] MEDS: NICOTINE 21 MG/24 HR PATCH T-DERMAL SCH (08:51)
[2017-11-08] MEDS ORDERED: INSULIN DETEMIR 100 UNITS/ML VIAL SQ SCH ×2 (09:00→12:30)
[2017-11-08 09:44] LABS: BACTERIA, URINE OCC /hpf; BILIRUBIN, URINE NEG (NEG); BLOOD, URINE NEG (NEG); GLUCOSE,URINE 150 mg/dL (NEG); KETONE, URINE 20 mg/dL (NEG); MUCUS URINE MANY /lpf (OCC); NITRITE,URINE NEG (NEG); SQUAMOUS EPITHELIAL CELL URINE 5 /hpf (0-5); URINE COLOR YELLOW (YELLW/STRAW); URINE LEUKOCYTE ESTERASE TRACE (NEG)
[2017-11-08] MEDS ORDERED: OLANZapine 5 MG TAB PO SCH (10:15)
[2017-11-08] MEDS ORDERED: diphenhydrAMINE HCL 50 MG CAP PO PRN (10:15)
[2017-11-08] MEDS ORDERED: DIVALPROEX SODIUM DELAYED RELEASE 250 MG TAB PO SCH (10:15)
[2017-11-08] MEDS ORDERED: hydrOXYzine HCL 50 MG TAB PO PRN (10:15)
--- NOTE | 2017-11-08 10:38 | HHI.HP ---
Provisional Diagnosis Admission Date Nov 07, 2017 at 17:55 [place]. Schizoaffective disorder bipolar type Certification of Person's Competence To Provide Express and Informed Consent I have personally examined Teena Cortez , a person being served at [facility] on, Nov 08, 2017 10:21. Express and informed consent means consent voluntarily given in writing, by a competent person, after sufficient explanation and disclosure of the subject matter involved to enable the person to make a knowing and willful decision without any element of force, fraud, deceit, duress, or other form of constraint or coercion. This person is 18 years of age or older, is not now known to be incompetent to consent to treatment with a guardian advocate, and does not have a health care surrogate or proxy currently making medical treatment decisions. I have found this person to be one of the following: [] Competent to provide express and informed consent, as defined above, for voluntary admission to this facility and is competent to provide express and informed consent for treatment. He/she has the consistent capacity to make well reasoned, willful, and knowing decisions concerning his or her medical or mental health treatment. The person fully and consistently understands the purpose of the admission for examination/placement and is fully capable of personally exercising all rights assured [place] [] Incompetent to provide express and informed consent to voluntary admission, and this is incompetent to provide express and informed consent to treatment. The person must be transferred to involuntary status and a petition for a guardian advocate filed with the Circuit Court. [xxx] Refusing to provide express and informed consent to voluntary admission but is competent to provide express and informed consent for treatment. The person must be discharged or transferred to involuntary status. Form shall be completed within 24 hours of a person's arrival at the receiving facility and filed in the clinical record of each person: 1. Admitted on a voluntary basis 2. Permitted to provide express and informed consent to his/her own treatment 3. Allowed to transfer from involuntary to voluntary status 4. Prior to permitting a person to consent to his or her own treatment after having been previously found incompetent to consent to treatment. History of Present Illness Capacity: Lacks Capacity (Patient lacks capacity to sign for admission, patient has capacity to sign for medication) HPI Patient is a 52-year-old white female well known to us from multiple psychiatric hospitalizations comes here under a [place] act signed by Ludy MIDDLETON and Aram Cramer contact dated 11/07/2017 and 1411 hrs. that document reviewed essentially is stating she is disorganized and loose associations rambling difficult to redirect yelling and talking about things that happened in the past refusing a long-acting injectable not sleeping and not eating well Darrius her stated that she is destroyed through TVs to microwaves and destroying their home he states that her erratic behavior has increased over the past few months is likely the patient will decompensate if she does not receive further assessment and treatment. Patient seen screen in our ED urine toxicology negative alcohol level negative. At the present time patient sitting on the bench and the activities area. Patient did recognize me from prior contact. Patient is markedly disorganized tangential and circumstantial attempting to deflect all behavioral issues onto her . She says she is not . She is vague and ambiguous about compliance with medications that she is not taking injectable medication and number of months has been noncompliant with other medications making reference to spinal surgery that she has had in the past including type of psychotropics that she can receive. While she denies voices or visions she appears to be responding to internal stimuli she is markedly psychotic and delusional. She is manic with rapid pressured speech she is quite vigilant also. She is showing no insight. At this time patient meets criteria for further inpatient psychiatric care under the [place] act I will do first opinion request second opinion we did discuss medications overall she is somewhat ambivalent I feel she does have the capacity, at this time, sign for medications we will start back on a Depakote of 500 mg twice daily review of past treatment show she has been on olanzapine in the past. I have not seen any injectables given through [facility] though she seems familiar with in [place] sustain. Less I will cancel the olanzapine and start the patient in [place] orally in anticipation of in [place] sustain a. Hopefully she can recover return home with her . She states she has a rare wine cooler, denies other drug use Review of Systems Constitutional: DENIES: Diaphoretic episodes, Fatigue, Fever, Weight gain, Weight loss, Chills, Dizziness, Change in appetite, Night Sweats Endocrine: DENIES: Abnorml menstrual pattern, Heat/cold intolerance, Polydipsia , Polyuria, Polyphagia Eyes: DENIES: Blurred vision, Diplopia, Eye inflammation, Eye pain, Vision loss , Photosensitivity, Double Vision Ears, nose, mouth, throat: DENIES: Tinnitus, Hearing loss, Vertigo, Nasal discharge, Oral lesions, Throat pain, Hoarseness, Ear Pain, Running Nose, Epistaxis, Sinus Pain, Toothache, Odynophagia Respiratory: DENIES: Apneas, Cough, Snoring, Wheezing, Hemoptysis, Sputum production, Shortness of breath Cardiovascular: DENIES: Chest pain, Palpitations, Syncope, Dyspnea on Exertion , PND, Lower Extremity Edema, Orthopnea, Claudication Gastrointestinal: DENIES: Abdominal pain, Black stools, Bloody stools, Constipation, Diarrhea, Nausea, Vomiting, Difficulty Swallowing, Anorexia Genitourinary: DENIES: Abnormal vaginal bleeding, Dysmenorrhea, Dyspareunia, Sexual dysfunction, Urinary frequency, Urinary incontinence, Urgency, Hematuria , Dysuria, Nocturia, Vaginal discharge Musculoskeletal: DENIES: Joint pain, Muscle aches, Stiffness, Joint Swelling, Back pain, Neck pain Integumentary: DENIES: Abnormal pigmentation, Pruritus, Rash, Nail changes, Breast masses, Breast skin changes, Nipple discharge Hematologic/lymphatic: DENIES: Bruising, Lymphadenopathy Immunologic/allergic: DENIES: Eczema, Urticaria Neurologic: DENIES: Abnormal gait, Headache, Localized weakness, Paresthesias, Seizures, Speech Problems, Tremor, Poor Balance Psychiatric: COMPLAINS OF: Anxiety, Mood changes, Hallucinations, Agitation, Delusions Past Psych History Psychological trauma history Patient denies at this time though makes vague references towards her Violence risk - others (6 mos) Patient destroying property in her home Violence risk - self (6 mos) Low to moderate Substance Abuse History Drugs/Alcohol past 12 months Patient states rare wine cooler Past Family Social History Coded Allergies: clindamycin (Unverified Allergy, Severe, 05/11/17) latex (Unverified Allergy, Severe, RASH, 05/11/17) codeine (Unverified Allergy, Intermediate, rash, 05/11/17) Active Scripts Atorvastatin (Lipitor) 10 Mg Tab, 10 MG PO HS for Cholesterol Management for 15 Days, TAB 1 Refill Prov:Jamil Mcintosh MD 05/16/17 Lurasidone (Latuda) 40 Mg Tab, 40 MG PO WITH DINNER for Mental Health for 15 Days, #15 TAB 1 Refill Prov:Jamil Mcintosh MD 05/16/[address] (Divalproex DR) 250 Mg Tabdr, 500 MG PO BID for Mental Health for 15 Days, #60 TAB 1 Refill Prov:Jamil Mcintosh MD 05/16/17 Insulin Detemir Inj (Levemir Inj) 1,000 unit/ 10 ML Vial, 17 UNITS SQ BID for Blood Sugar Management for 15 Days, INJECTION 1 Refill Prov:Jamil Mcintosh MD 12/16/16 Reported Medications Lisinopril (Lisinopril) 10 Mg Tab, 10 MG PO DAILY, #30 TAB 0 Refills 05/08/16 Current Medications Medications (Trade) Dose Ordered Sig/Bill Route Start Time Stop Time Status Last Admin (Tylenol) 650 mg Q4H PRN PO 11/07/17 18:00 (Milk Of Magnesia Liq) 30 ml DAILY PRN PO 11/07/17 18:00 (Mag-Al Plus Susp Liq) 30 ml Q6H PRN PO 11/07/17 18:00 (Habitrol 21 Mg Patch.24 Hr) 1 patch DAILY T-DERMAL 11/08/17 09:00 Miscellaneous Information 1 HS T-DERMAL 11/07/17 21:00 (D50w (Vial) Inj) 50 ml UNSCH PRN IV PUSH 11/07/17 18:15 (Glucagon Inj) 1 mg UNSCH PRN OTHER 11/07/17 18:15 (NovoLIN R SUPPLEMENTAL SCALE) 1 ACHS SLIDING SCALE SQ 11/07/17 21:00 11/08/17 08:00 (Levemir Inj) 10 units BID SQ 11/08/17 09:00 11/08/17 08:50 (Lipitor) 10 mg HS PO 11/08/17 21:00 (Depakote Er) 500 mg BID PO 11/08/17 10:15 (ZyPREXA) 5 mg Q12HR PO 11/08/17 10:15 Family Psych History Unknown at this time Social History Patient lives with her Patient's Strengths (min. 2) Patient verbal able access healthcare Physical Exam Patient medically cleared ED at the present time patient sitting quietly in the activities room she is in no acute distress, no complaints of respiratory problems no complaints of chest pain, no complaints of abdominal pain. Patient moving all 4 extremities without difficulty Vital Signs Vital Signs Date Time Temp Pulse Resp B/P (MAP) Pulse Ox O2 Delivery O2 Flow Rate FiO2 11/08/17 05:47 97.8 87 16 117/66 (83) 97 Lab Results Test 11/07/17 15:00 11/08/17 06:25 11/08/17 09:08 White Blood Count 5.8 TH/MM3 Red Blood Count 4.74 MIL/MM3 Hemoglobin 14.8 GM/DL Hematocrit 43.7 % Mean Corpuscular Volume 92.1 FL Mean Corpuscular Hemoglobin 31.2 PG Mean Corpuscular Hemoglobin Concent 33.9 % Red Cell Distribution Width 13.3 % Platelet Count 227 TH/MM3 Mean Platelet Volume 8.8 FL Neutrophils (%) (Auto) 58.5 % Lymphocytes (%) (Auto) 33.5 % Monocytes (%) (Auto) 6.7 % Eosinophils (%) (Auto) 0.9 % Basophils (%) (Auto) 0.4 % Neutrophils # (Auto) 3.4 TH/MM3 Lymphocytes # (Auto) 1.9 TH/MM3 Monocytes # (Auto) 0.4 TH/MM3 Eosinophils # (Auto) 0.1 TH/MM3 Basophils # (Auto) 0.0 TH/MM3 CBC Comment DIFF FINAL Differential Comment Blood Urea Nitrogen 20 MG/DL 21 MG/DL Creatinine 1.02 MG/DL 0.70 MG/DL Random Glucose 402 MG/DL 181 MG/DL Total Protein 6.9 GM/DL Albumin 3.5 GM/DL Calcium Level 8.9 MG/DL 8.1 MG/DL Alkaline Phosphatase 79 U/L Aspartate Amino Transf (AST/SGOT) 16 U/L Alanine Aminotransferase (ALT/SGPT) 25 U/L Total Bilirubin 0.4 MG/DL Sodium Level 138 MEQ/L 144 MEQ/L Potassium Level 4.6 MEQ/L 4.4 MEQ/L Chloride Level 103 MEQ/L 111 MEQ/L Carbon Dioxide Level 24.0 MEQ/L 26.2 MEQ/L Anion Gap 11 MEQ/L 7 MEQ/L Estimat Glomerular Filtration Rate 56 ML/MIN 87 ML/MIN Thyroid Stimulating Hormone 3rd Gen 1.190 uIU/ML Salicylates Level 3.2 MG/DL Acetaminophen Level LESS THAN 2.0 MCG/ML Ethyl Alcohol Level LESS THAN 3 MG/DL Triglycerides Level 44 MG/DL Cholesterol Level 142 MG/DL LDL Cholesterol 60 MG/DL HDL Cholesterol 73.0 MG/DL Cholesterol/HDL Ratio 1.94 RATIO Urine Color YELLOW Urine Turbidity HAZY Urine pH 5.0 Urine Specific [place] 1.029 Urine Protein 30 mg/dL Urine Glucose (UA) 150 mg/dL Urine Ketones 20 mg/dL Urine Occult Blood NEG Urine Nitrite NEG Urine Bilirubin NEG Urine Urobilinogen 2.0 mg/dL Urine Leukocyte Esterase TRACE Urine RBC 3 /hpf Urine WBC 6 /hpf Urine Squamous Epithelial Cells 5 /hpf Urine Bacteria OCC /hpf Urine Mucus MANY /lpf Microscopic Urinalysis Comment CULT NOT INDICATED Urine Opiates Screen NEG Urine Barbiturates Screen NEG Urine Amphetamines Screen NEG Urine Benzodiazepines Screen NEG Urine Cocaine Screen NEG Urine Cannabinoids Screen NEG Mental Status Examination Appearance: Dirty, Disheveled, Malodorous (underweight ) Consciousness: Other (currently given zyprexa ) Orientation: Person Motor Activity: Normal gait Speech: Pressured, Rapid, Incoherent Language: Perseveration Fund of Knowledge: Poor Attention and Concentration: Easily Distracted Memory: Impaired Mood: Angry, Anxious, Irritable, Manic Affect: Irritable, Anxious Thought Process & Associations: Loose associations, Disorganized, Tangential Thought Content: Bizarre thinking, Ideas of reference, Hallucinations, Racing thoughts Hallucination Type: Auditory Delusion Type: Bizarre, Paranoid Suicidal Ideation: No Suicidal Plan: No Suicidal Intention: No Homicidal Ideation: No Homicidal Plan: No Homicidal Intention: No Insight: Poor Judgment: Poor Assessment & Plan Problem List: (1) Schizoaffective disorder ICD Codes: F25.9 - Schizoaffective disorder, unspecified Status: Acute Assessment & Plan Estimated LOS: 5-7 days patient continues quite psychotic and manic, with history of noncompliance medication, we will offer her Depakote 500 mg twice daily and in [place] 6 mg daily anticipation of the [place] sustained in a few days at this time she does meet criteria for involuntary psychiatric hospitalization under the [place] act I will do first opinion request second opinion Discharge Planning Hopefully to return home with Request HC Surrog/Guard Advoc?: No Problem Qualifiers (1) Schizoaffective disorder: Qualified Codes: F25.0 - Schizoaffective disorder, bipolar type Gallo Miles MD Nov 08, 2017 10:38
[2017-11-08] MEDS ORDERED: MONT10TA4 PO (10:53)
[2017-11-08] MEDS ORDERED: VIST25CA PO (10:53)
[2017-11-08] MEDS ORDERED: LEXA20TA PO (10:53)
[2017-11-08] MEDS ORDERED: LEVO200T4 PO (10:53)
[2017-11-08] MEDS ORDERED: NOVONP2 SQ (10:53)
[2017-11-08] MEDS ORDERED: ISOS30TA3 PO (10:53)
[2017-11-08] MEDS ORDERED: LORazepam 2 MG/ML VIAL IM STA (11:02)
[2017-11-08] MEDS ORDERED: OLANZapine IM 10 MG VIAL IM STA (11:02)
[2017-11-08] MEDS: DIVALPROEX SODIUM E.R. 500 MG TAB PO SCH ×2 (12:36→22:08)
[2017-11-08] MEDS: PALIPERIDONE ER 6 MG TAB PO SCH (12:36)
--- NOTE | 2017-11-08 15:18 | PD.PSY.CON ---
Provisional Diagnosis Admission Date Nov 07, 2017 at 17:55 Amelia I. Schizoaffective disorder bipolar type History of Present Illness Service Psychiatry Consult Requested By Psychiatry Reason for Consult Second opinion Primary Care Physician Unknown HPI Patient is a 52-year-old white female well known to us from multiple psychiatric hospitalizations comes here under a [place] signed by Ludy MIDDLETON and Aram Cramer contact dated 11/07/2017 and 1411 hrs. that document reviewed essentially is stating she is disorganized and loose associations rambling difficult to redirect yelling and talking about things that happened in the past refusing a long-acting injectable not sleeping and not eating well Darrius her stated that she is destroyed through TVs to microwaves and destroying their home he states that her erratic behavior has increased over the past few months is likely the patient will decompensate if she does not receive further assessment and treatment. Patient seen screen in our ED urine toxicology negative alcohol level negative. At the present time patient sitting on the bench and the activities area. Patient did recognize me from prior contact. Patient is markedly disorganized tangential and circumstantial attempting to deflect all behavioral issues onto her . She says she is not . She is vague and ambiguous about compliance with medications that she is not taking injectable medication and number of months has been noncompliant with other medications making reference to spinal surgery that she has had in the past including type of psychotropics that she can receive. While she denies voices or visions she appears to be responding to internal stimuli she is markedly psychotic and delusional. She is manic with rapid pressured speech she is quite vigilant also. She is showing no insight. At this time patient meets criteria for further inpatient psychiatric care under the [place] I will do first opinion request second opinion we did discuss medications overall she is somewhat ambivalent I feel she does have the capacity, at this time, sign for medications we will start back on a Depakote of 500 mg twice daily review of past treatment show she has been on olanzapine in the past. I have not seen any injectables given through [place] though she seems familiar with in [place] sustain. Less I will cancel the olanzapine and start the patient in [place] orally in anticipation of in [place] sustain a. Hopefully she can recover return home with her . She states she has a rare wine cooler, denies other drug use. The patient is a 52-year-old woman, domiciled in [place] with her , unemployed, with psychiatric history of schizoaffective disorder, history of alcohol use disorder, who was admitted on the [place] act due to disorganized behavior, loosening of associations, agitation and aggressiveness. Apparently the patient has been quite disorganized and aggressive at home. She was consulted to me for second opinion. I find a patient that is quite expensive, talkative, disorganized. 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 She says that she speaks 4 languages "and I am here actually to teach all other my abilities". Patient does not seem to be aware of the real reason of her hospitalization, she has a very poor insight, she has a melanie loosening of associations. She denies suicidal enemas ideation, she denies visual and auditory hallucinations. She is oriented 3. Review of Systems Constitutional: DENIES: Diaphoretic episodes, Fatigue, Fever, Weight gain, Weight loss, Chills, Dizziness, Change in appetite, Night Sweats Endocrine: DENIES: Abnorml menstrual pattern, Heat/cold intolerance, Polydipsia , Polyuria, Polyphagia Eyes: DENIES: Blurred vision, Diplopia, Eye inflammation, Eye pain, Vision loss , Photosensitivity, Double Vision Ears, nose, mouth, throat: DENIES: Tinnitus, Hearing loss, Vertigo, Nasal discharge, Oral lesions, Throat pain, Hoarseness, Ear Pain, Running Nose, Epistaxis, Sinus Pain, Toothache, Odynophagia Respiratory: DENIES: Apneas, Cough, Snoring, Wheezing, Hemoptysis, Sputum production, Shortness of breath Cardiovascular: DENIES: Chest pain, Palpitations, Syncope, Dyspnea on Exertion , PND, Lower Extremity Edema, Orthopnea, Claudication Gastrointestinal: DENIES: Abdominal pain, Black stools, Bloody stools, Constipation, Diarrhea, Nausea, Vomiting, Difficulty Swallowing, Anorexia Genitourinary: DENIES: Abnormal vaginal bleeding, Dysmenorrhea, Dyspareunia, Sexual dysfunction, Urinary frequency, Urinary incontinence, Urgency, Hematuria , Dysuria, Nocturia, Vaginal discharge Musculoskeletal: DENIES: Joint pain, Muscle aches, Stiffness, Joint Swelling, Back pain, Neck pain Integumentary: DENIES: Abnormal pigmentation, Pruritus, Rash, Nail changes, Breast masses, Breast skin changes, Nipple discharge Hematologic/lymphatic: DENIES: Bruising, Lymphadenopathy Immunologic/allergic: DENIES: Eczema, Urticaria Neurologic: DENIES: Abnormal gait, Headache, Localized weakness, Paresthesias, Seizures, Speech Problems, Tremor, Poor Balance Psychiatric: COMPLAINS OF: Agitation, Delusions Past Family Social History Coded Allergies: clindamycin (Unverified Allergy, Severe, 05/11/17) latex (Unverified Allergy, Severe, RASH, 05/11/17) codeine (Unverified Allergy, Intermediate, rash, 05/11/17) Active Scripts Atorvastatin (Lipitor) 10 Mg Tab, 10 MG PO HS for Cholesterol Management for 15 Days, TAB 1 Refill Prov:Jamil Mcintosh MD 05/16/17 Lurasidone (Latuda) 40 Mg Tab, 40 MG PO WITH DINNER for Mental Health for 15 Days, #15 TAB 1 Refill Prov:Jamil Mcintosh MD 05/16/[address] (Divalproex DR) 250 Mg Tabdr, 500 MG PO BID for Mental Health for 15 Days, #60 TAB 1 Refill Prov:Jamil Mcintosh MD 05/16/17 Insulin Detemir Inj (Levemir Inj) 1,000 unit/ 10 ML Vial, 17 UNITS SQ BID for Blood Sugar Management for 15 Days, INJECTION 1 Refill Prov:Jamil Mcintosh MD 12/16/16 Reported Medications Insulin Human NPH Inj (Novolin N Inj) 1,000 Unit/10 Ml Vial, 10 UNITS SQ DAILY for Blood Sugar Management, #10 ML 0 Refills 11/08/17 Escitalopram (Lexapro) 20 Mg Tab, 20 MG PO DAILY, #30 TAB 0 Refills 11/08/17 Hydroxyzine Pamoate (Vistaril) 25 Mg Cap, 25 MG PO Q6H Y for ANXIETY, CAP 0 Refills 11/08/17 Montelukast (Montelukast) 10 Mg Tab, 10 MG PO HS, #30 TAB 0 Refills 18 Isosorbide Mononitrate ER (Isosorbide Mononitrate ER) 30 Mg Cece, 30 MG PO DAILY for Prevent Chest Pain, #30 TAB 0 Refills 11/08/17 Levothyroxine (Levothyroxine) 200 Mcg Tab, 200 MCG PO DAILY for Thyroid, #30 TAB 0 Refills 6/20/18 Lisinopril (Lisinopril) 10 Mg Tab, 10 MG PO DAILY, #30 TAB 0 Refills 05/08/16 Current Medications Medications (Trade) Dose Ordered Sig/Bill Route Start Time Stop Time Status Last Admin (Tylenol) 650 mg Q4H PRN PO 11/07/17 18:00 (Milk Of Magnesia Liq) 30 ml DAILY PRN PO 11/07/17 18:00 (Mag-Al Plus Susp Liq) 30 ml Q6H PRN PO 11/07/17 18:00 (Habitrol 21 Mg Patch.24 Hr) 1 patch DAILY T-DERMAL 11/08/17 09:00 Miscellaneous Information 1 HS T-DERMAL 11/07/17 21:00 (D50w (Vial) Inj) 50 ml UNSCH PRN IV PUSH 11/07/17 18:15 (Glucagon Inj) 1 mg UNSCH PRN OTHER 11/07/17 18:15 (NovoLIN R SUPPLEMENTAL SCALE) 1 ACHS SLIDING SCALE SQ 11/07/17 21:00 11/08/17 12:36 (Levemir Inj) 10 units BID SQ 11/08/17 09:00 11/08/17 08:50 (Lipitor) 10 mg HS PO 11/08/17 21:00 (Depakote Er) 500 mg BID PO 11/08/17 10:15 11/08/17 12:36 (Benadryl) 50 mg HS PRN PO 11/08/17 10:15 (Atarax) 50 mg Q6H PRN PO 11/08/17 10:15 (Invega Er) 6 mg DAILY PO 11/08/17 10:45 11/08/17 12:36 (Lexapro) 20 mg DAILY PO 11/09/17 09:00 (Imdur) 30 mg DAILY PO 11/09/17 09:00 (Synthroid) 200 mcg DAILY@0600 PO 11/09/17 06:00 (Levemir Inj) 5 units ONCE SQ 11/08/17 12:30 11/08/17 23:59 11/08/17 12:43 Patient's Strengths (min. 2) Patient verbal able access healthcare Physical Exam Vital Signs Vital Signs Date Time Temp Pulse Resp B/P (MAP) Pulse Ox O2 Delivery O2 Flow Rate FiO2 11/08/17 05:47 97.8 87 16 117/66 (90) 97 Lab Results Test 11/08/17 06:25 11/08/17 09:08 Blood Urea Nitrogen 21 MG/DL Creatinine 0.70 MG/DL Random Glucose 181 MG/DL Calcium Level 8.1 MG/DL Sodium Level 144 MEQ/L Potassium Level 4.4 MEQ/L Chloride Level 111 MEQ/L Carbon Dioxide Level 26.2 MEQ/L Anion Gap 7 MEQ/L Estimat Glomerular Filtration Rate 87 ML/MIN Triglycerides Level 44 MG/DL Cholesterol Level 142 MG/DL LDL Cholesterol 60 MG/DL HDL Cholesterol 73.0 MG/DL Cholesterol/HDL Ratio 1.94 RATIO Urine Color YELLOW Urine Turbidity HAZY Urine pH 5.0 Urine Specific [place] 1.029 Urine Protein 30 mg/dL Urine Glucose (UA) 150 mg/dL Urine Ketones 20 mg/dL Urine Occult Blood NEG Urine Nitrite NEG Urine Bilirubin NEG Urine Urobilinogen 2.0 mg/dL Urine Leukocyte Esterase TRACE Urine RBC 3 /hpf Urine WBC 6 /hpf Urine Squamous Epithelial Cells 5 /hpf Urine Bacteria OCC /hpf Urine Mucus MANY /lpf Microscopic Urinalysis Comment CULT NOT INDICATED Urine Opiates Screen NEG Urine Barbiturates Screen NEG Urine Amphetamines Screen NEG Urine Benzodiazepines Screen NEG Urine Cocaine Screen NEG Urine Cannabinoids Screen NEG Mental Status Examination Appearance: Dirty, Disheveled, Malodorous (underweight ) Consciousness: Other (currently given zyprexa ) Orientation: Person Motor Activity: Normal gait Speech: Pressured, Rapid, Incoherent Language: Perseveration Fund of Knowledge: Poor Attention and Concentration: Easily Distracted Memory: Impaired Mood: Angry, Anxious, Irritable, Manic Affect: Irritable, Anxious Thought Process & Associations: Loose associations, Disorganized, Tangential Thought Content: Bizarre thinking, Ideas of reference, Hallucinations, Racing thoughts Hallucination Type: Auditory Delusion Type: Bizarre, Paranoid Suicidal Ideation: No Suicidal Plan: No Suicidal Intention: No Homicidal Ideation: No Homicidal Plan: No Homicidal Intention: No Insight: Poor Judgment: Poor Assessment & Plan Problem List: (1) Schizoaffective disorder ICD Codes: F25.9 - Schizoaffective disorder, unspecified Status: Acute Assessment & Plan: I have seen and examined this patient, reviewed documentation, I agree and concur with Dr. Miles's assessment and plan. Consult appreciated. Assessment & Plan Estimated LOS: days Request HC Surrog/Guard Advoc?: No Problem Qualifiers (1) Schizoaffective disorder: Qualified Codes: F25.0 - Schizoaffective disorder, bipolar type Gavin Toussaint MD Nov 08, 2017 15:18
[2017-11-08 15:19] VITALS: BP 127/63; PULSE 80; RESP 18; TEMP 97.8; O2SAT 97
--- NOTE | 2017-11-08 15:27 | PD.CONS ---
[facility] By KANE Richards Reason for Consult Diabetes Primary Care Physician Unknown Diagnoses: History of Present Illness 52-year-old female with past medical history significant for HTN, HLD, DM, GERD , chronic back pain, seizure disorder, and schizophrenia who presented to the ED under [place] by [facility] staff. Per ED documentation patient with disorganized, loose associations, rambling, and difficult to eat to redirect. She has been added to inpatient psychiatry unit, [facility] consulted to assist with medical management of diabetes. Patient is seen and examined in her room in no acute distress, ambulating in the [place] without assistive devices. She reports that she was seen at [facility] and placed under [place] act but believes that the provider who [place] acted her confused here for a close friend of hers. She also reports that she has a brother who was a twin brother but then goes on to tell me that it is not really a twin brother. She is cooperative and alert and oriented 3 with disorganized thoughts throughout our conversation. She denies any fevers, chills, nausea, vomiting, diarrhea, shortness of breath, cough, chest pain. She is able to name the medications that she takes at home, reports that she has a history of seizures and her last seizure was about 1 month ago. She also states that she does not follow up with her neurologist, was last seen in 1999. Spoke with nurse reports patient had apparently been trying to wean herself off of her Depakote. Patient does not voice any acute concerns or complaints at the moment. Review of Systems ROS Limitations: Poor Historian Except as stated in HPI: all other systems reviewed are Neg Past Family Social History Allergies: Coded Allergies: clindamycin (Unverified Allergy, Severe, 05/11/17) latex (Unverified Allergy, Severe, RASH, 05/11/17) codeine (Unverified Allergy, Intermediate, rash, 05/11/17) Past Medical History Hypertension Hyperlipidemia Seizure disorder Diabetes mellitus Chronic back pain GERD Past Surgical History Hysterectomy Back surgery Cholecystectomy Reported Medications Reported Meds & Active Scripts Active Lipitor (Atorvastatin Calcium) 10 Mg Tab 10 Mg PO HS 15 Days Latuda (Lurasidone) 40 Mg Tab 40 Mg PO WITH DINNER [address] (Divalproex Sodium) 250 Mg Tabdr 500 Mg PO BID 15 Days Levemir Inj (Insulin Detemir) 1,000 unit/ 10 ML Vial 17 Units SQ BID 15 Days Reported Novolin N Inj (Insulin Human NPH) 1,000 Unit/10 Ml Vial 10 Units SQ DAILY Lexapro (Escitalopram Oxalate) 20 Mg Tab 20 Mg PO DAILY Vistaril (Hydroxyzine Pamoate) 25 Mg Cap 25 Mg PO Q6H PRN Montelukast (Montelukast Sodium) 10 Mg Tab 10 Mg PO HS Isosorbide Mononitrate ER (Isosorbide Mononitrate) 30 Mg Cece 30 Mg PO DAILY Levothyroxine (Levothyroxine Sodium) 200 Mcg Tab 200 Mcg PO DAILY Lisinopril 10 Mg Tab 10 Mg PO DAILY Active Ordered Medications Current Medications Medications (Trade) Dose Ordered Sig/Bill Route Start Time Stop Time Status Last Admin (Tylenol) 650 mg Q4H PRN PO 11/07/17 18:00 (Milk Of Magnesia Liq) 30 ml DAILY PRN PO 11/07/17 18:00 (Mag-Al Plus Susp Liq) 30 ml Q6H PRN PO 11/07/17 18:00 (Habitrol 21 Mg Patch.24 Hr) 1 patch DAILY T-DERMAL 11/08/17 09:00 Miscellaneous Information 1 HS T-DERMAL 11/07/17 21:00 (D50w (Vial) Inj) 50 ml UNSCH PRN IV PUSH 11/07/17 18:15 (Glucagon Inj) 1 mg UNSCH PRN OTHER 11/07/17 18:15 (NovoLIN R SUPPLEMENTAL SCALE) 1 ACHS SLIDING SCALE SQ 11/07/17 21:00 11/08/17 12:36 (Levemir Inj) 10 units BID SQ 11/08/17 09:00 11/08/17 08:50 (Lipitor) 10 mg HS PO 11/08/17 21:00 (Depakote Er) 500 mg BID PO 11/08/17 10:15 11/08/17 12:36 (Benadryl) 50 mg HS PRN PO 11/08/17 10:15 (Atarax) 50 mg Q6H PRN PO 11/08/17 10:15 (Invega Er) 6 mg DAILY PO 11/08/17 10:45 11/08/17 12:36 (Lexapro) 20 mg DAILY PO 11/09/17 09:00 (Imdur) 30 mg DAILY PO 11/09/17 09:00 (Synthroid) 200 mcg DAILY@0600 PO 11/09/17 06:00 (Levemir Inj) 5 units ONCE SQ 11/08/17 12:30 11/08/17 23:59 11/08/17 12:43 Family History Denies any past family history Social History Tobacco: 1 pack per day Alcohol use: 2 wine coolers daily Illicit drug use: Denies Physical Exam Vital Signs Vital Signs Date Time Temp Pulse Resp B/P (MAP) Pulse Ox O2 Delivery O2 Flow Rate FiO2 11/08/17 05:47 97.8 87 16 117/66 (83) 97 11/07/17 22:38 91 20 117/68 (84) 97 Physical Exam GENERAL: Well-nourished, well-developed, disheveled female in no acute distress. SKIN: No rashes, ecchymoses or lesions. Cool and dry. HEAD: Atraumatic. Normocephalic. EYES: Pupils equal round and reactive. Extraocular motions intact. No scleral icterus. No injection or drainage. ENT: Nose without bleeding, purulent drainage. Throat without erythema. Uvula midline. Airway patent. NECK: Trachea midline. No JVD. Supple. CARDIOVASCULAR: Regular rate and rhythm without murmurs, gallops, or rubs. RESPIRATORY: Clear to auscultation. Breath sounds equal bilaterally. No wheezes , rales, or rhonchi. GASTROINTESTINAL: Abdomen soft, non-tender, nondistended. No palpable masses. No guarding. MUSCULOSKELETAL: Extremities without clubbing, cyanosis, or edema. No joint tenderness, effusion, or edema noted. No calf tenderness. NEUROLOGICAL: Awake and alert oriented to place, time, year. Cranial nerves II through XII grossly intact. Motor and sensory grossly within normal limits. Five out of 5 muscle strength in all muscle groups. Normal speech. Laboratory Laboratory Tests Test 11/08/17 06:25 11/08/17 09:08 Blood Urea Nitrogen 21 Creatinine 0.70 Random Glucose 181 Calcium Level 8.1 Sodium Level 144 Potassium Level 4.4 Chloride Level 111 Carbon Dioxide Level 26.2 Anion Gap 7 Estimat Glomerular Filtration Rate 87 Triglycerides Level 44 Cholesterol Level 142 LDL Cholesterol 60 HDL Cholesterol 73.0 Cholesterol/HDL Ratio 1.94 Urine Color YELLOW Urine Turbidity HAZY Urine pH 5.0 Urine Specific [place] 1.029 Urine Protein 30 Urine Glucose (UA) 150 Urine Ketones 20 Urine Occult Blood NEG Urine Nitrite NEG Urine Bilirubin NEG Urine Urobilinogen 2.0 Urine Leukocyte Esterase TRACE Urine RBC 3 Urine WBC 6 Urine Squamous Epithelial Cells 5 Urine Bacteria OCC Urine Mucus MANY Microscopic Urinalysis Comment CULT NOT INDICATED Urine Opiates Screen NEG Urine Barbiturates Screen NEG Urine Amphetamines Screen NEG Urine Benzodiazepines Screen NEG Urine Cocaine Screen NEG Urine Cannabinoids Screen NEG Result Diagram: 11/07/17 1500 11/08/17 0625 Imaging Last Impressions Radius/Ulna X-Ray 11/07/17 1459 Signed Impressions: CONCLUSION: 1. No acute fracture or dislocation. Assessment and Plan Assessment and Plan 52-year-old female with past medical history significant for HTN, HLD, DM, GERD , chronic back pain, seizure disorder, and schizophrenia who presented to the ED under [place] act by [facility] staff. Per ED documentation patient with disorganized, loose associations, rambling, and difficult to eat to redirect. She has been added to inpatient psychiatry unit, [facility] consulted to assist with medical management of diabetes. Schizophrenia -Treatment per psychiatry Diabetes mellitus II, poorly controlled in the past (hemoglobin A1c in April 2017 was 12.2) -Pending hemoglobin A1c -ADA diet, Accu-Cheks with insulin sliding scale coverage -Blood sugar high this afternoon, received Levemir 10 units in the a.m. with an additional 5 units around 12:30pm -Patient reported 17 units of Levemir twice daily, will restart Levemir dose at 15 mg twice daily -Continue monitoring blood sugars and adjusting accordingly Hypertension, controlled Hyperlipidemia -Patient's Imdur was resumed, blood pressure stable. Resume lisinopril if needed -Resume home dose statin -Continue monitoring vitals and adjusting medications accordingly Seizure disorder -Home dose Depakote has been resumed -Monitor for seizure activity, seizure precautions, check levels. Hypothyroidism -continue Synthroid 200 mcg in the a.m. -TSH stable DVT prophylaxis-ambulating Thank you for this consultation, will continue to follow along. Discussed Condition With Patient and nursing staff. Ishan Bowling Nov 08, 2017 15:27
[2017-11-08 17:16] LABS: HEMOGLOBIN A1C 11.3 % (4.3-6.0)
[2017-11-08] MEDS: REMOVE OLD PATCH T-DERMAL SCH (21:00)
[2017-11-08] MEDS: ATORVASTATIN 10 MG TAB PO SCH (22:08)
[2017-11-08] MEDS: INSULIN DETEMIR 100 UNITS/ML VIAL SQ SCH (22:24)
[2017-11-09] MEDS: LEVOTHYROXINE SODIUM 200 MCG TAB PO SCH (05:41)
[2017-11-09 05:49] VITALS: BP 118/65; PULSE 90; RESP 16; TEMP 97.8; O2SAT 100
[2017-11-09] MEDS: INSULIN NovoLIN REGULAR SUPPLEMENTAL SCALE SQ SCH ×4 (08:00→20:32)
[2017-11-09] MEDS: INSULIN DETEMIR 100 UNITS/ML VIAL SQ SCH (08:00)
[2017-11-09] MEDS: ISOSORBIDE MONONITRATE 30 MG CR TAB (IMDUR) PO SCH (08:17)
[2017-11-09] MEDS: ESCITALOPRAM OXALATE 20 MG TAB PO SCH (08:17)
[2017-11-09] MEDS: PALIPERIDONE ER 6 MG TAB PO SCH (08:17)
[2017-11-09] MEDS: NICOTINE 21 MG/24 HR PATCH T-DERMAL SCH (08:18)
[2017-11-09] MEDS: DIVALPROEX SODIUM E.R. 500 MG TAB PO SCH ×2 (08:18→20:33)
--- NOTE | 2017-11-09 14:29 | HHI.PR ---
Subjective Remarks Follow-up visit diabetes type I, HTN, HLD, GERD, chronic back pain, seizure disorder, schizophrenia. Patient seen and examined today. States that she is doing okay. States that she has been a type I diabetic and has been using Novolin insulin at home. Discussed with patient results of hemoglobin A1c. Discussed with patient regimen changes including basal insulin use. Patient states that she has chronic pain on her shoulder and that she uses Lortab before and was asking for it. Patient keeps on referring to her tattoo and talking to it as her trying to be while talking to me. Denies SOB/ dyspnea. Denies chest pain, palpitations, headaches, dizziness. Denies fevers, chills, n/v/d. Denies dysuria. Objective Vitals Vital Signs Date Time Temp Pulse Resp B/P (MAP) Pulse Ox O2 Delivery O2 Flow Rate FiO2 11/09/17 05:49 97.8 90 16 118/65 (82) 100 11/08/17 15:19 97.8 80 18 127/63 (84) 97 Result Diagram: 11/07/17 1500 11/08/17 0625 Imaging Last Impressions Radius/Ulna X-Ray 11/07/17 1459 Signed Impressions: CONCLUSION: 1. No acute fracture or dislocation. Objective Remarks GENERAL: This is a well-nourished, disheveled, well-developed patient, in no apparent distress. SKIN: Warm and dry. Multiple tattoos. HEENT: Normocephalic. Pupils equal round and reactive. Nose without bleeding. Airway patent. NECK: Trachea midline. CARDIOVASCULAR: Regular rate and rhythm without murmurs, gallops, or rubs. RESPIRATORY: Clear to auscultation. Breath sounds equal bilaterally. No wheezes , rales, or rhonchi. GASTROINTESTINAL: Abdomen soft, non-tender, nondistended. Bowel Sounds normoactive x4. MUSCULOSKELETAL: Extremities without clubbing, cyanosis, or edema. NEUROLOGICAL: Awake and alert. Oriented to place, person. Moves all extremities. Normal speech. A/P Assessment and Plan 52-year-old female with past medical history significant for HTN, HLD, DM, GERD , chronic back pain, seizure disorder, and schizophrenia who presented to the ED under [place] act by [facility] staff. Per ED documentation patient with disorganized, loose associations, rambling, and difficult to eat to redirect. She has been added to inpatient psychiatry unit, [facility] consulted to assist with medical management of diabetes. Schizophrenia -Treatment per psychiatry Diabetes mellitus II, poorly controlled in the past (hemoglobin A1c in April 2017 was 12.2) -ADA diet, Accu-Cheks with insulin sliding scale coverage -Hemoglobin A1c 11.5 -Levemir increased to 17 units twice daily, continue insulin sliding scale. If patient continues to be greater than 200s by tomorrow will start prandial insulin use. -Monitor Accu-Cheks, monitor for hypoglycemia. Hypertension, controlled Hyperlipidemia -Patient's Imdur was resumed, blood pressure stable. Resume low-dose lisinopril for kidney protection patient has type 1 diabetes. -Resume home dose statin -Continue monitoring vitals and adjusting medications accordingly Seizure disorder -Home dose Depakote has been resumed -Monitor for seizure activity, seizure precautions, check levels. Hypothyroidism -continue Synthroid 200 mcg -TSH stable DVT prophylaxis-ambulating Hiro Ernst Nov 09, 2017 14:29
--- NOTE | 2017-11-09 15:17 | HHI.PYPN ---
Subjective Remarks Patient seen in [place] with nurse, chart reviewed, patient somewhat calmer her affect is slowly decreasing in its range and intensity slightly better eye contact. She does deny suicidality homicidality voice or visions. For now continue treatment Review of Systems Except as stated in HPI: all other systems reviewed are Neg Mental Status Examination Appearance: Dirty, Disheveled, Malodorous (underweight ) Consciousness: Other (currently given zyprexa ) Orientation: Person Motor Activity: Normal gait Speech: Pressured, Rapid, Incoherent Language: Perseveration Fund of Knowledge: Poor Attention and Concentration: Easily Distracted Memory: Impaired Mood: Angry, Anxious, Irritable, Manic Affect: Irritable, Anxious Thought Process & Associations: Loose associations, Disorganized, Tangential Thought Content: Bizarre thinking, Ideas of reference, Hallucinations, Racing thoughts Hallucination Type: Auditory Delusion Type: Bizarre, Paranoid Suicidal Ideation: No Suicidal Plan: No Suicidal Intention: No Homicidal Ideation: No Homicidal Plan: No Homicidal Intention: No Insight: Poor Judgment: Poor Results Vitals/IOs Vital Signs Date Time Temp Pulse Resp B/P (MAP) Pulse Ox O2 Delivery O2 Flow Rate FiO2 11/09/17 05:49 97.8 90 16 118/65 (82) 100 Assessment & Plan Problem List: (1) Schizoaffective disorder ICD Codes: F25.9 - Schizoaffective disorder, unspecified Status: Acute Assessment & Plan Estimated LOS: days patient continues intense and somewhat intrusive but improved. Compliant medications. For now continue treatment Justification for Cont. Inpt. At this time patient would decompensate a place to a lower level of care Discharge Planning To be determined Request HC Surrog/Guard Advoc?: No Problem Qualifiers (1) Schizoaffective disorder: Qualified Codes: F25.0 - Schizoaffective disorder, bipolar type Gallo Miles MD Nov 09, 2017 15:17
[2017-11-09] MEDS: IBUPROFEN 400 MG TAB PO PRN (15:44)
[2017-11-09] MEDS: ATORVASTATIN 10 MG TAB PO SCH (20:33)
[2017-11-09] MEDS: REMOVE OLD PATCH T-DERMAL SCH (20:34)
[2017-11-09] MEDS ORDERED: INSULIN DETEMIR 100 UNITS/ML VIAL SQ SCH (21:00)
[2017-11-10 05:14] VITALS: BP 120/63; PULSE 82; RESP 16; TEMP 97.6; O2SAT 95
[2017-11-10] MEDS: LEVOTHYROXINE SODIUM 200 MCG TAB PO SCH (05:53)
[2017-11-10] MEDS: NICOTINE 21 MG/24 HR PATCH T-DERMAL SCH (07:57)
[2017-11-10] MEDS: INSULIN ASPART 1,000 UNITS/10 ML VIAL SQ SCH ×2 (08:00→12:00)
[2017-11-10] MEDS: INSULIN NovoLIN REGULAR SUPPLEMENTAL SCALE SQ SCH ×2 (08:00→12:00)
[2017-11-10] MEDS: ESCITALOPRAM OXALATE 20 MG TAB PO SCH (08:41)
[2017-11-10] MEDS: PALIPERIDONE ER 6 MG TAB PO SCH (08:41)
[2017-11-10] MEDS: ISOSORBIDE MONONITRATE 30 MG CR TAB (IMDUR) PO SCH (08:41)
[2017-11-10] MEDS: DIVALPROEX SODIUM E.R. 500 MG TAB PO SCH (08:42)
[2017-11-10] MEDS: IBUPROFEN 400 MG TAB PO PRN (08:42)
[2017-11-10] MEDS ORDERED: LISINOPRIL 10 MG TAB PO SCH (09:00)
[2017-11-10] MEDS ORDERED: INSULIN DETEMIR 100 UNITS/ML VIAL SQ SCH (09:00)
[2017-11-10] MEDS ORDERED: LISI10TA3 PO (13:03)
[2017-11-10] MEDS ORDERED: DEPA500T3 PO (13:03)
[2017-11-10] MEDS ORDERED: LEVO200T4 PO (13:03)
[2017-11-10] MEDS ORDERED: LEVEMIR SQ (13:03)
[2017-11-10] MEDS ORDERED: ISOS30TA3 PO (13:03)
[2017-11-10] MEDS ORDERED: LIPI10TA PO (13:03)
[2017-11-10] MEDS ORDERED: LEXA20TA PO (13:03)
[2017-11-10] MEDS ORDERED: NOVOLOGP2 SQ (13:03)
[2017-11-10] MEDS ORDERED: PALI234P IM (13:06)
[2017-11-10] MEDS ORDERED: INVE6TAB3 PO (13:06)
--- NOTE | 2017-11-10 13:10 | HHI.DS ---
Psychiatry Discharge Summary Inpatient Psychiatric care?: Yes Advance Directive: No Reason Not Provided: Due to Patient Condition Mental Health AdvanceDirective: No Health Care Proxy: No Admission Admission Date Nov 07, 2017 at 17:55 Admission Diagnosis: (1) Schizoaffective disorder ICD Code: F25.9 - Schizoaffective disorder, unspecified Brief History Patient is a 52-year-old white female well known to us from multiple psychiatric hospitalizations comes here under a [place] act signed by Ludy MIDDLETON and Aram Cramer contact dated 11/07/2017 and 1411 hrs. that document reviewed essentially is stating she is disorganized and loose associations rambling difficult to redirect yelling and talking about things that happened in the past refusing a long-acting injectable not sleeping and not eating well Darrius her stated that she is destroyed through TVs to microwaves and destroying their home he states that her erratic behavior has increased over the past few months is likely the patient will decompensate if she does not receive further assessment and treatment. Patient seen screen in our ED urine toxicology negative alcohol level negative. At the present time patient sitting on the bench and the activities area. Patient did recognize me from prior contact. Patient is markedly disorganized tangential and circumstantial attempting to deflect all behavioral issues onto her . She says she is not . She is vague and ambiguous about compliance with medications that she is not taking injectable medication and number of months has been noncompliant with other medications making reference to spinal surgery that she has had in the past including type of psychotropics that she can receive. While she denies voices or visions she appears to be responding to internal stimuli she is markedly psychotic and delusional. She is manic with rapid pressured speech she is quite vigilant also. She is showing no insight. At this time patient meets criteria for further inpatient psychiatric care under the [place] act I will do first opinion request second opinion we did discuss medications overall she is somewhat ambivalent I feel she does have the capacity, at this time, sign for medications we will start back on a Depakote of 500 mg twice daily review of past treatment show she has been on olanzapine in the past. I have not seen any injectables given through [facility] though she seems familiar with in [facility] sustain. Less I will cancel the olanzapine and start the patient in [place] orally in anticipation of in [facility] sustain a. Hopefully she can recover return home with her . She states she has a rare wine cooler, denies other drug use. The patient is a 52-year-old woman, domiciled in [place] with her , unemployed, with psychiatric history of schizoaffective disorder, history of alcohol use disorder, who was admitted on the [place] act due to disorganized behavior, loosening of associations, agitation and aggressiveness. Apparently the patient has been quite disorganized and aggressive at home. She was consulted to me for second opinion. I find a patient that is quite expensive, talkative, disorganized. 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 She says that she speaks 4 languages "and I am here actually to teach all other my abilities". Patient does not seem to be aware of the real reason of her hospitalization, she has a very poor insight, she has a melanie loosening of associations. She denies suicidal enemas ideation, she denies visual and auditory hallucinations. She is oriented 3. Tobacco Use In Past 30 Days: No Tobacco Past 30 Days Alcohol Use: Never Hospital Course Patient's hospital course initially showed her psychosis and manic type behavior with resistance to compliance medication and intrusiveness lability and irritability. However with the addition of the and [place] and the discontinuation of the [place] patient started showing improvement her affect softened or pressured speech slowed down and grandiosity slowed down. Patient also been compliant with her other medications. Today patient denies suicidality homicidality voices or visions. We will be checking patient's Depakote level over today, and patient will be getting her in [place] sustain a to 34 mg IM today and q. 28 days. Patient to be discharged after getting the blood drawn and having the injection to follow-up [facility] Results Blood Pressure 120 / 63 Vital Signs Date Time Temp Pulse Resp B/P (MAP) Pulse Ox O2 Delivery O2 Flow Rate FiO2 11/10/17 05:14 97.6 82 16 120/63 (82) 95 Laboratory Tests Test 11/07/17 15:00 11/08/17 06:25 11/08/17 09:08 Blood Urea Nitrogen 20 MG/DL (7-18) 21 MG/DL (7-18) Creatinine 1.02 MG/DL (0.50-1.00) Random Glucose 402 MG/DL (74-106) 181 MG/DL (74-106) Estimat Glomerular Filtration Rate 56 ML/MIN (>89) 87 ML/MIN (>89) Acetaminophen Level LESS THAN 2.0 MCG/ML Calcium Level 8.1 MG/DL (8.5-10.1) Chloride Level 111 MEQ/L (98-107) Hemoglobin A1c 11.3 % (4.3-6.0) HDL Cholesterol 73.0 MG/DL (40.0-60.0) Urine Turbidity HAZY (CLEAR) Urine Protein 30 mg/dL (NEG-TRACE) Urine Glucose (UA) 150 mg/dL (NEG) Urine Urobilinogen 2.0 mg/dL (LESS THAN 2) Urine Leukocyte Esterase TRACE (NEG) Urine WBC 6 /hpf (0-5) Urine Bacteria OCC /hpf (NONE) Urine Mucus MANY /lpf (OCC) Laboratory Results Test 11/08/17 06:25 Cholesterol Level 142 MG/DL (120-200) HDL Cholesterol 73.0 MG/DL (40.0-60.0) Hemoglobin A1c 11.3 % (4.3-6.0) LDL Cholesterol 60 MG/DL (0-99) Triglycerides Level 44 MG/DL (42-150) Summary of Procedures None done Imaging Last Impressions [facility] X-Ray 11/07/17 1459 Signed Impressions: CONCLUSION: 1. No acute fracture or dislocation. Pending results at discharge: No Medications # of Antipsychotic meds at D/C: 1 Approp Antipsych med options 1 - Minimum of three failed multiple trials of monotherapy. 2 - Documented plan to taper to monotherapy due to previous use of multiple meds OR cross-taper in progress at D/C. 3 - Documentation of augmentation of Clozapine. 4 - Justification other than those listed in allowable values 1-3, document here : Discharge Discharge Date: Nov 10, 2017 Discharge Diagnosis: (1) Schizoaffective disorder Diagnosis: Principal ICD Code: F25.9 - Schizoaffective disorder, unspecified Status: Acute Pt Condition on Discharge: Stable Discharge Disposition: Discharge Home Discharge Instructions Diet Instructions: As Tolerated, No Restrictions Activities you can perform: Regular-No Restrictions Scheduled Appointment: Aram Vargas Discharge Time > 30 minutes Mental Status Examination Appearance: Dirty, Disheveled, Malodorous (underweight ) Consciousness: Other (currently given zyprexa ) Orientation: Person Motor Activity: Normal gait Speech: Pressured, Rapid, Incoherent Language: Perseveration Fund of Knowledge: Poor Attention and Concentration: Easily Distracted Memory: Impaired Mood: Angry, Anxious, Irritable, Manic Affect: Irritable, Anxious Thought Process & Associations: Loose associations, Disorganized, Tangential Thought Content: Bizarre thinking, Ideas of reference, Hallucinations, Racing thoughts Hallucination Type: Auditory Delusion Type: Bizarre, Paranoid Suicidal Ideation: No Suicidal Plan: No Suicidal Intention: No Homicidal Ideation: No Homicidal Plan: No Homicidal Intention: No Insight: Poor Judgment: Poor Discharge/Advance Care Plan Health Problems: (1) Schizoaffective disorder Goals to promote your health * To prevent worsening of your condition and complications * To maintain your health at the optimal level Directions to meet your goals Take your medications as prescribed Follow your dietary instruction Follow activity as directed Keep your appointments as scheduled Take your immunizations and boosters as scheduled If your symptoms worsen call your PCP, if no PCP go to Urgent Care Center or Emergency Room For 12/12 questions related to your inpatient stay or results of tests pending at discharge, please contact Dr. Gallo Miles at Smoking is Dangerous to Your Health. Avoid second hand smoking Problem Qualifiers (1) Schizoaffective disorder: Qualified Codes: F25.0 - Schizoaffective disorder, bipolar type Gallo Miles MD Nov 10, 2017 13:09
[2017-11-10] MEDS ORDERED: PALIPERIDONE PALMITATE 234 MG/1.5 ML SYRINGE IM SCH (15:00)
== END 2017-11-10 16:00 | disposition home or self-care (01) | DRG 885 ==
LOC: NEPJ 14:32 → NEDA 17:55 → H260 22:36
PROVIDERS: ADMIT Psychiatry & Neurology Psychiatry; ATTEND Psychiatry & Neurology Psychiatry
DX: F25.0 Schizoaffective disorder, bipolar type (principal); I42.9 Cardiomyopathy, unspecified; F50.9 Eating disorder, unspecified; I10 Essential (primary) hypertension; E78.5 Hyperlipidemia, unspecified; E03.9 Hypothyroidism, unspecified; K21.9 Gastro-esophageal reflux disease without esophagitis; G89.29 Other chronic pain; G40.909 Epilepsy, unspecified, not intractable, without status epilepticus; M54.9 Dorsalgia, unspecified; J45.909 Unspecified asthma, uncomplicated; E11.9 Type 2 diabetes mellitus without complications; M19.90 Unspecified osteoarthritis, unspecified site; F17.210 Nicotine dependence, cigarettes, uncomplicated; Z79.4 Long term (current) use of insulin; Z88.1 Allergy status to other antibiotic agents; Z88.5 Allergy status to narcotic agent; Z91.040 Latex allergy status; Z91.14 Patient's other noncompliance with medication regimen
CPT/HCPCS: 73090; 80048; 80053; 80061; 80164; 80307; 81001; 82948; 83036; 84443; 85025; 96372; J1815; J2060; J2426